=== PATIENT | female | born 2000 | race Caucasian/White ===

== ENCOUNTER 2019-09-29 20:39 | Emergency (ER) | payer MEDICAID, SELFPAY ==
[2019-09-29 20:40] VITALS: BP 155/109; PULSE 81; RESP 18; TEMP 36.8; O2SAT 98; BMI 37.4
--- NOTE | 2019-09-29 20:58 | ED_ITS ---
Entered by Jasmine Swanson, acting as scribe for Jese Gudino DO HPI - Abdominal Pain General: Chief Complaint: Abdominal Pain Stated Complaint: r side pain Time Seen by Provider: 09/29/19 20:55 History of Present Illness: HPI narrative: 19yo female presents with right flank pain. Symptoms have been intermittent over the last few weeks. Patient has had nausea and vomiting but denies any blood in vomit. Patient does not know of anything that worsens the pain. Associated Symptoms: Denies chills, coffee ground emesis, constipation, GI cramping, diarrhea, dysuria, fever(s), heartburn, hematochezia, hematuria, hematemesis, melena, nausea, syncope and vomiting Review of Systems Const: Denies: fever, chills, body aches, fatigue, malaise or night sweats Eyes: Denies: change in vision or blurry vision ENMT: Denies: throat pain, oral sores/lesions, dental pain, nasal discharge or nasal congestion Card: Denies: chest pain, palpitations, irregular heart rhythm, edema, syncope, shortness of breath on exertion, shortness of breath when lying down or leg pain with exertion Resp: Denies: shortness of breath, productive cough, non-productive cough or wheezing GI: Reports: abdominal pain (right flank pain); Denies: nausea, vomiting, vomiting blood, coffee grounds in vomit, difficulty swallowing, heartburn/indigestion, diarrhea, constipation, cramping, blood in stool or black tarry stool : Reports: flank pain (right); Denies: painful urination, urinary frequency, urinary urgency, urinary incontinence or blood in urine Musc: Denies: neck pain, back pain, extremity pain, extremity swelling, joint pain or joint swelling Skin/Breast: Denies: rash, itching or redness Neuro: Denies: headache, numbness in extremities, weakness in extremities, changes in sensation, lack of coordination, difficulty walking, frequent falls, dizziness, vertigo or confusion Psych: Denies: anxiety, depression, loss of interest, visual hallucinations, auditory hallucinations, suicidal ideation or homicidal ideation Endo: Denies: excessive urination, excessive thirst, tired all the time or cold intolerance Judson/Lymph: Denies: easy bruising, easy bleeding, petechiae, enlarged lymph nodes or tender lymph nodes PFSH ED PFSH: Social History Smoking and tobacco status: current every day smoker Physical Exam Const: COMMON NORMALS: average body habitus, oriented x3 and alert GENERAL APPEARANCE: cooperative, comfortable, well kempt and well developed NUTRITIONAL APPEARANCE: obese ORIENTATION/CONSCIOUSNESS: Yes awake, Yes oriented to person and Yes oriented to place HENMT: COMMON NORMALS: normocephalic, head/scalp atraumatic, EAC's normal, TM's normal bilaterally, external nose normal, moist oral mucous membranes and oropharynx normal HEAD & SCALP: normocephalic and atraumatic NOSE: external nose normal EXTERNAL AUDITORY CANAL: EAC's normal TYMPANIC MEMBRANE: TM's normal bilaterally MOUTH: oral and palatal mucosa normal, lip normal and tongue normal THROAT: posterior oropharynx normal and tonsils normal Eye: COMMON NORMALS: PERRL, EOMs intact bilaterally, conjunctivae normal and no scleral icterus CONJUNCTIVA: Yes conjunctivae normal PUPIL: Yes PERRL Neck/C-Spine: COMMON NORMALS: full ROM, no lymphadenopathy, supple, no meningeal signs and thyroid normal THYROID: thyroid normal and asymmetrical Lymph: LYMPHATIC: no lymphadenopathy noted Resp: COMMON NORMALS: normal respiratory effort, no retractions, no use of ac cessory muscles and clear to auscultation bilaterally AUSCULTATION: clear to auscultation bilaterally Cardio: COMMON NORMALS: regular rate and regular rhythm RATE: regular rate RHYTHM: regular rhythm HEART SOUNDS: no murmurs GI: COMMON NORMALS: normal to inspection, nondistended, normoactive bowel sounds, soft to palpation and no hepatosplenomegaly PALPATION: Yes soft and Yes no hepatosplenomegaly : COMMON NORMALS: Yes no CVA tenderness BLADDER/KIDNEY EXAM: Yes no CVA tenderness Back/Pelvis: COMMON NORMALS: no CVA tenderness LUMBAR SPINE/LOWER BACK: Yes normal to inspection Extremity: COMMON NORMALS: no clubbing, cyanosis or edema, no calf tenderness and no pedal edema Neuro: COMMON NORMALS: oriented x3 SENSORIUM/ORIENTATION: Yes alert, Yes oriented to person and Yes oriented to place MENINGEAL SIGNS: Yes no meningeal signs Psych: APPEARANCE: Yes well kempt Skin: COMMON NORMALS: no rashes or lesions noted and skin turgor normal GENERAL SKIN EXAM: no rashes or lesions noted and turgor normal Course ED course: No definitive finding elevation of white count. We will let her go home return if has any further problems. Vital Signs: Vital signs: Vital Signs Temperature 98.3 F 09/29/19 20:40 Pulse Rate 69 09/29/19 23:34 Respiratory Rate 16 09/29/19 23:34 Blood Pressure 155/109 09/29/19 20:40 Pulse Oximetry 97 09/29/19 23:34 MDM - Abdominal Pain Lab Data: Labs: Lab Results 09/29/19 09/29/19 09/29/19 Range/Units 21:18 21:18 21:20 WBC 9.4 (4.0-10.0) 10^3/ uL RBC 4.70 (4.1-5.3) 10^6/u L Hgb 10.7 L (11.5-15.3) g/dL Hct 36.4 L (37.0-47.0) % MCV 77.4 L (81-99) fL MCH 22.8 L (28.0-34.0) pg MCHC 29.4 L (30.0-36.0) g/dL RDW 16.4 H (12.1-15.1) % Plt Count 447 H (130-400) 10^3/c mm MPV 11.3 H (7.4-10.4) fL Neut % (Auto) 64.3 % Lymph % (Auto) 25.2 % [place] % (Auto) 6.6 % Eos % (Auto) 3.2 % Baso % (Auto) 0.4 % Neut # (Auto) 6.0 (1.8-7.7) 10^3/u L Lymph # (Auto) 2.4 (0.8-4.8) 10^3/u L [place] # (Auto) 0.6 (0.2-0.9) 10^3/u L Eos # (Auto) 0.3 (0.0-0.8) 10^3/u L Baso # (Auto) 0.0 (0.0-0.1) 10^3/u L Nucleated RBC % (a uto) 0 % Nucleated RBCs # 0.0 /100WBC Sodium (136-145) mmol/L Potassium (3.5-5.1) mmol/L Chloride (98-107) mmol/L Carbon Dioxide (22-29) mmol/L Anion Gap (5-19) BUN (6-20) mg/dL Creatinine (0.5-0.9) mg/dL GFR Calculation (90-130) mL/min Glucose (65-115) mg/dL Calcium (8.5-10.5) mg/dL Total Bilirubin (0.15-1.2) mg/dL AST (0-32) U/L ALT (0-33) U/L Alkaline Phosphata se (35-105) IU/L Total Protein (6.6-8.7) g/dL Albumin (3.5-5.2) g/dL Globulin (1.3-4.6) g/dL HCG, Qual Negative (Negative) Urine Color Straw (Yellow) Urine Appearance Clear (CLEAR) Urine pH 6.5 (5-7) Ur Specific Gravit y 1.010 (1.005-1.030) Urine Protein Neg (Negative) Urine Glucose (UA) Norm (Normal) Urine Ketones Negative (Negative) Urine Blood Neg (Negative) Urine Nitrate Negative (Negative) Urine Bilirubin Neg (NEGATIVE) Urine Urobilinogen Norm (Negative) mg/dL Ur Leukocyte Christiana ase Negative (Negative) 09/29/19 Range/Units 21:20 WBC (4.0-10.0) 10^3/ uL RBC (4.1-5.3) 10^6/u L Hgb (11.5-15.3) g/dL Hct (37.0-47.0) % MCV (81-99) fL MCH (28.0-34.0) pg MCHC (30.0-36.0) g/dL RDW (12.1-15.1) % Plt Count (130-400) 10^3/c mm MPV (7.4-10.4) fL Neut % (Auto) % Lymph % (Auto) % [place] % (Auto) % Eos % (Auto) % Baso % (Auto) % Neut # (Auto) (1.8-7.7) 10^3/u L Lymph # (Auto) (0.8-4.8) 10^3/u L [place] # (Auto) (0.2-0.9) 10^3/u L Eos # (Auto) (0.0-0.8) 10^3/u L Baso # (Auto) (0.0-0.1) 10^3/u L Nucleated RBC % (a uto) % Nucleated RBCs # /100WBC Sodium 138 (136-145) mmol/L Potassium 3.8 (3.5-5.1) mmol/L Chloride 103 (98-107) mmol/L Carbon Dioxide 23 (22-29) mmol/L Anion Gap 15.8 (5-19) BUN 11 (6-20) mg/dL Creatinine 0.7 (0.5-0.9) mg/dL GFR Calculation 105.6 (90-130) mL/min Glucose 91 (65-115) mg/dL Calcium 9.7 (8.5-10.5) mg/dL Total Bilirubin 0.2 (0.15-1.2) mg/dL AST 13 (0-32) U/L ALT 14 (0-33) U/L Alkaline Phosphata se 76 (35-105) IU/L Total Protein 7.6 (6.6-8.7) g/dL Albumin 4.5 (3.5-5.2) g/dL Globulin 3.1 (1.3-4.6) g/dL HCG, Qual (Negative) Urine Color (Yellow) Urine Appearance (CLEAR) Urine pH (5-7) Ur Specific Gravit y (1.005-1.030) Urine Protein (Negative) Urine Glucose (UA) (Normal) Urine Ketones (Negative) Urine Blood (Negative) Urine Nitrate (Negative) Urine Bilirubin (NEGATIVE) Urine Urobilinogen (Negative) mg/dL Ur Leukocyte Christiana ase (Negative) Discharge Plan Discharge Patient Disposition: Home, Self-Care Clinical Impression: Abdominal pain Condition: Stable Prescriptions: New Zofran 4 mg tablet 4 mg PO Q6H PRN (Reason: nausea and vomiting) Qty: 20 RF: 0 Discharge Orders: Discharge Order (Routine); Ordered 09/29/19 Ordered By: Jese Gudino Discharge Diet: Clear Liquid Discharge Activity: Increase activity as tolerated Patient Instructions: Abdominal Pain (ED) Stand Alone Forms: Work/School Release Discharge Date/Time: 09/29/19 23:35 Coding Level of Care Code ED [employer] for [facility] Fwd Exam Comprehensive The documentation recorded by the Sky ambrosio Bailey Leadawn, accurately reflects the service I personally performed and the decisions made by , Jese Gudino, Sep 29, 2019 20:39
--- NOTE | 2019-09-29 21:09 | US_ITS ---
WS: [id number] ABDOMINAL ULTRASOUND LIMITED REASON FOR VISIT: abd pain TECHNIQUE: Grayscale and Doppler ultrasound examination of the abdomen. FINDINGS: Pancreas: Within normal limits. Abdominal aorta and IVC: Within normal limits. Liver: Liver measures 10.8 cm in length. Normal hepatopedal portal circulation. Gallbladder: Gallbladder wall thickness measures 1.4 mm. No stones. Common bile duct negative. Right kidney: Right kidney measures 12.0 cm x 5.5 cm x 5.4 cm. Right kidney cortex measures 2.03 cm. No hydronephrosis no stones. US/US gall bladder [id number] IMPRESSION: Normal right upper quadrant ultrasound.
[2019-09-29 21:31] LABS: Add Urine Microscopic? NO
[2019-09-29] MEDS: sodium chloride 0.9% 1,000 ML 999 ML IV (21:34)
[2019-09-29 21:36] LABS: Basophils % 0.4 %; Eosinophils # 0.3 10^3/uL (0.0-0.8); Eosinophils % 3.2 %; Hematocrit 36.4 % (37.0-47.0); Hemoglobin 10.7 g/dL (11.5-15.3); Lymphocytes # 2.4 10^3/uL (0.8-4.8); Lymphocytes % 25.2 %; Mean Corpuscular HGB Conc 29.4 g/dL (30.0-36.0); Mean Corpuscular Hemoglobin 22.8 pg (28.0-34.0); Mean Corpuscular Volume 77.4 fL (81-99); Mean Platelet Volume 11.3 fL (7.4-10.4); Monocytes # 0.6 10^3/uL (0.2-0.9); Monocytes % 6.6 %; Neutrophils % 64.3 %; Nucleated Red Blood Cells % 0 %; Platelet Count 447 10^3/cmm (130-400); Red Cell Distribution Width 16.4 % (12.1-15.1); White Blood Count 9.4 10^3/uL (4.0-10.0)
[2019-09-29 21:49] LABS: HCG Qualitative Urine. Negative (Negative)
[2019-09-29 21:52] LABS: Alanine Aminotransferase 14 U/L (0-33); Albumin Level 4.5 g/dL (3.5-5.2); Alkaline Phosphatase 76 IU/L (35-105); Anion Gap 15.8 (5-19); Aspartate Amino Transferase 13 U/L (0-32); Blood Urea Nitrogen 11 mg/dL (6-20); Calcium 9.7 mg/dL (8.5-10.5); Carbon Dioxide 23 mmol/L (22-29); Chloride 103 mmol/L (98-107); Globulin 3.1 g/dL (1.3-4.6); Glomerular Filtration Rate 105.6 mL/min (90-130); Glucose 91 mg/dL (65-115); Potassium 3.8 mmol/L (3.5-5.1); Sodium 138 mmol/L (136-145); Total Bilirubin 0.2 mg/dL (0.15-1.2); Total Protein 7.6 g/dL (6.6-8.7)
[2019-09-29 22:04] LABS: Bilirubin Urine Neg (NEGATIVE); Blood Urine Neg (Negative); Glucose Urine UA Norm (Normal); Ketones Urine Negative (Negative); Leukocyte Esterase Urine Negative (Negative); Nitrate Urine Negative (Negative); Protein Urine Neg (Negative); Urine Appearance Clear (CLEAR); Urine Color Straw (Yellow); Urobilinogen Urine Norm (Negative); pH Urine 6.5 (5-7)
[2019-09-29] MEDS: sodium chlor 0.9% + KCl 20 mEq 20 MEQ/1,000 ML BAG 125 MEQ IV (22:16)
[2019-09-29 23:34] VITALS: PULSE 69; RESP 16; O2SAT 97
== END 2019-09-29 23:35 | disposition home or self-care (01) ==
PROVIDERS: Emergency Provider Family Medicine
DX: R10.9 Unspecified abdominal pain (principal); F17.200 Nicotine dependence, unspecified, uncomplicated
CPT/HCPCS: 76705; 80053; 81003; 81025; 85025; 94799; 96365; 96366; 99282; 99283; A9270; J7030

== ENCOUNTER → 2019-10-07 15:03 | Outpatient (BNVA) | payer SELFPAY | PROVIDERS: Visit Provider Nurse Practitioner | DX: R11.2 Nausea with vomiting, unspecified (principal); R50.9 Fever, unspecified; K52.9 Noninfective gastroenteritis and colitis, unspecified; Z20.828 Contact with and (suspected) exposure to other viral communicable diseases | CPT/HCPCS: 87804 ==

== ENCOUNTER 2020-05-15 22:16 | Emergency (ER) | payer SELFPAY ==
[2020-05-15 22:18] VITALS: BP 119/81; PULSE 64; RESP 14; TEMP 36.7; O2SAT 100; BMI 37.9
--- NOTE | 2020-05-15 22:33 | W.ED.ABDPA2 ---
HPI - Abdominal Pain General: Chief Complaint: Abdominal Pain Stated Complaint: 5 WKS , HAVING ABD CRAMPS Time Seen by Provider: 05/15/20 22:23 History of Present Illness: HPI narrative: Patient is a 1 that is 5 weeks and comes to the ED with lower abdominal cramping. Symptoms started today. Patient says she had some light spotting earlier today but that has since resolved. No other vaginal bleeding or discharge. She says her lower abdominal cramping pain is intermittent and rates pain 4 out of 10. Patient took some Tylenol approximately 2 hours before coming to the ED. Denies any fever, chills, emesis, dysuria, hematuria, diarrhea, constipation, blood in stool. Associated Symptoms: Denies chills, constipation, diarrhea, dysuria, fever(s), hematochezia, hematuria, nausea and vomiting Review of Systems Const: Denies: fever(s), chills or fatigue Eyes: Denies: change in vision or eye discomfort ENMT: Denies: throat pain, odynophagia, nasal discharge or nasal congestion Card: Denies: chest pain, palpitations, edema, swelling of feet/ankles, dyspnea on exertion or orthopnea Resp: Denies: dyspnea, productive cough or non-productive cough GI: Reports: abdominal pain (intermittent lower abdominal cramping); Denies: nausea, vomiting, diarrhea, constipation or hematochezia : Reports: vaginal bleeding (Patient had light spotting in the morning, but it has since resolved.) and pelvic pain (cramping); Denies: flank pain, dysuria, urinary frequency or hematuria Musc: Denies: neck pain, back pain or extremity swelling Skin/Breast: Denies: rash or new lesions Neuro: Denies: headache(s), numbness in extremities or weakness in extremities PFSH ED PFSH: Social History Smoking and tobacco status: current every day smoker Physical Exam Const: COMMON NORMALS: no acute distress, patient oriented x3 and alert GENERAL APPEARANCE: cooperative and comfortable NUTRITIONAL APPEARANCE: obese HENMT: COMMON NORMALS: normocephalic HEAD & SCALP: normocephalic MOUTH: Normal oral and palatal mucosa present THROAT: posterior oropharynx normal and uvula midline Neck/C-Spine: COMMON NORMALS: supple GENERAL: Yes normal visual inspection Resp: COMMON NORMALS: normal respiratory effort, No retractions, No use of accessory muscles and clear to auscultation bilaterally AUSCULTATION: clear to auscultation bilaterally Cardio: COMMON NORMALS: regular rate, regular rhythm, S1 normal heart sound present, S2 normal heart sound present, No gallops present (Cardio), No clicks present (Cardio), No murmurs present (Cardio) and Peripheral pulses 2+ throughout RATE: regular rate RHYTHM: regular rhythm HEART SOUNDS: S1 normal heart sound present and S2 normal heart sound present PERIPHERAL PULSES: Peripheral pulses 2+ throughout GI: COMMON NORMALS: Normal to inspection, nondistended, normoactive bowel sounds present, Soft to palpation and no masses INSPECTION: Yes central obesity PALPATION: Yes Soft to palpation and Yes Tenderness to palpation present (GI) Details: other (Mild lower abdominal tenderness bilaterally.) : COMMON NORMALS: Yes no CVA tenderness BLADDER/KIDNEY EXAM: Yes no CVA tenderness Back/Pelvis: COMMON NORMALS: no CVA tenderness Extremity: COMMON NORMALS: normal to inspection and no pedal edema Neuro: COMMON NORMALS: patient oriented x3 SENSORIUM/ORIENTATION: Yes alert GAIT: Yes Normal gait present Skin: COMMON NORMALS: no rashes or lesions noted GENERAL SKIN EXAM: no rashes or lesions noted and dry skin Course Vital Signs: Vital signs: Vital Signs Temperature 98.1 F 05/15/20 22:18 Pulse Rate 67 05/16/20 00:35 Respiratory Rate 16 05/16/20 00:35 Blood Pressure 122/65 05/15/20 23:14 Pulse Oximetry 99 05/16/20 00:35 MDM - Abdominal Pain MDM Narrative: Medical decision making narrative: Patient is a 5-week 19-year-old female who comes to the ED with lower abdominal/pelvic cramping and light spotting that has since resolved. Physical exam shows a patient in no acute distress pain sitting comfortably on the exam bed when entered the room. She has some mild tenderness upon palpation of the lower pelvic region bilaterally. CBC, CMP and UA were unremarkable. hCG quant 2,076. Ultrasound of the pelvis was performed and no gestational sac was seen. Unable to rule out ectopic . Patient was told to follow-up here in the ED in 3 days or her PCP/OB doctor in 3 days to be reevaluated and to have hCG quant checked again. Return to ED precautions given. Patient understood and agreed with plan. Lab Data: Attestation: I reviewed the patient's lab results. Labs: Lab Results 05/15/20 05/15/20 05/15/20 Range/Units 22:43 22:43 22:46 WBC 10.8 H (4.0-10.0) 10^3/ uL RBC 4.62 (4.1-5.3) 10^6/u L Hgb 11.6 (11.5-15.3) g/dL Hct 37.5 (37.0-47.0) % MCV 81.2 (81-99) fL MCH 25.1 L (28.0-34.0) pg MCHC 30.9 (30.0-36.0) g/dL RDW 15.6 H (12.1-15.1) % Plt Count 410 H (130-400) 10^3/c mm MPV 11.9 H (7.4-10.4) fL Neut % (Auto) 64.3 % Lymph % (Auto) 25.2 % [place] % (Auto) 7.3 % Eos % (Auto) 2.5 % Baso % (Auto) 0.5 % Neut # (Auto) 6.93 (1.8-7.7) 10^3/u L Lymph # (Auto) 2.7 (0.8-4.8) 10^3/u L [place] # (Auto) 0.8 (0.2-0.9) 10^3/u L Eos # (Auto) 0.3 (0.0-0.8) 10^3/u L Baso # (Auto) 0.1 (0.0-0.1) 10^3/u L Nucleated RBC % (a uto) 0 % Nucleated RBCs # 0.0 /100WBC Sodium 136 (136-145) mmol/L Potassium 3.7 (3.5-5.1) mmol/L Chloride 105 (98-107) mmol/L Carbon Dioxide 21 L (22-29) mmol/L Anion Gap 13.7 (5-19) BUN 10 (6-20) mg/dL Creatinine 0.5 (0.5-0.9) mg/dL GFR Calculation 155.7 H (90-130) mL/min Glucose 95 (65-115) mg/dL Calculated Osmolal ity 281 L (285-295) mOsm/k g Calcium 8.9 (8.5-10.5) mg/dL Total Bilirubin 0.2 (0.15-1.2) mg/dL AST 15 (0-32) U/L ALT 11 (0-33) U/L Alkaline Phosphata se 70 (35-105) IU/L Total Protein 6.8 (6.6-8.7) g/dL Albumin 4.1 (3.5-5.2) g/dL Globulin 2.7 (1.3-4.6) g/dL Ser , Jennifer i-Qnt 2076.00 mIU/mL Urine Color Yellow (Yellow) Urine Appearance Clear (CLEAR) Urine pH 5 (5-7) Ur Specific Gravit y 1.030 (1.005-1.030) Urine Protein Neg (Negative) Urine Glucose (UA) Norm (Normal) Urine Ketones Negative (Negative) Urine Blood Neg (Negative) Urine Nitrate Negative (Negative) Urine Bilirubin Neg (Negative) Urine Urobilinogen Norm (Negative) mg/dL Ur Leukocyte Christiana ase Trace H (Negative) Urine RBC 0-4 H (0-2) /hpf Urine WBC 0-4 H (0-5) /hpf Ur Squamous Epith Cells 0-4 H (0-5) /hpf Amorphous Sediment Not Reportable Urine Bacteria Trace (NONE) /hpf Urine Mucus 1+ /hpf Imaging Data ^: US OB: Attestation: I personally reviewed and interpreted this imaging study as follows: Radiologist's impression: Ultrasound pelvic prelim report?no gestational sac seen in utero or ectopic. Unable to rule out ectopic . Discharge Plan Discharge Patient Disposition: Home Clinical Impression: Pelvic cramping Qualifiers: Weeks of gestation: less than 8 weeks Qualified Code(s): Z3A.01 - Less than 8 weeks gestation of Condition: Stable Prescriptions: No Action cyclobenzaprine 10 mg tablet 10 mg PO TID PRN (Reason: muscle spasm) 7 Days Qty: 14 RF: 0 ibuprofen 400 mg tablet 400 mg PO Q8H PRN (Reason: pain) 7 Days Qty: 21 RF: 0 Zofran 4 mg tablet 4 mg PO Q6H PRN (Reason: nausea and vomiting) Qty: 20 RF: 0 Discharge Orders: Discharge Order (Routine); Ordered 05/16/20 Ordered By: Karthikeyan Parekh Discharge Diet: Regular Discharge Activity: Resume usual activity Activity Restrictions/Additional Instructions: Follow-up with medical provider as directed. Return to ED or OB doctor in the next 3 days to be reevaluated and to recheck hCG levels. Take Tylenol for pain. Return to the ER or your medical provider if condition worsens. Please read and understand discharge instructions. If any questions, please ask. Stand Alone Forms: Work/School Release Discharge Date/Time: 05/16/20 00:38 Coding Level of Care Code ED [employer] Education Coordinator for [facility] Fwd Exam Comprehensive
[2020-05-15 22:54] LABS: Basophils # 0.1 10^3/uL (0.0-0.1); Basophils % 0.5 %; Eosinophils # 0.3 10^3/uL (0.0-0.8); Eosinophils % 2.5 %; Hematocrit 37.5 % (37.0-47.0); Hemoglobin 11.6 g/dL (11.5-15.3); Lymphocytes # 2.7 10^3/uL (0.8-4.8); Lymphocytes % 25.2 %; Mean Corpuscular HGB Conc 30.9 g/dL (30.0-36.0); Mean Corpuscular Hemoglobin 25.1 pg (28.0-34.0); Mean Corpuscular Volume 81.2 fL (81-99); Mean Platelet Volume 11.9 fL (7.4-10.4); Monocytes # 0.8 10^3/uL (0.2-0.9); Monocytes % 7.3 %; Neutrophils # 6.93 10^3/uL (1.8-7.7); Neutrophils % 64.3 %; Nucleated Red Blood Cells % 0 %; Platelet Count 410 10^3/cmm (130-400); Red Blood Count 4.62 10^6/uL (4.1-5.3); Red Cell Distribution Width 15.6 % (12.1-15.1); White Blood Count 10.8 10^3/uL (4.0-10.0)
[2020-05-15 23:14] VITALS: BP 122/65; PULSE 76; RESP 16; O2SAT 99
[2020-05-15 23:14] LABS: Bacteria Urine TRACE /hpf; Bilirubin Urine Neg (Negative); Blood Urine Neg (Negative); Glucose Urine UA Norm (Normal); Ketones Urine Negative (Negative); Leukocyte Esterase Urine Trace (Negative); Mucus Urine 1+ /hpf; Nitrate Urine Negative (Negative); Protein Urine Neg (Negative); RBC Urine 0-4 /hpf (0-2); Squamous Epithelial Cell Urine 0-4 /hpf (0-5); Urine Appearance Clear (CLEAR); Urine Color Yellow (Yellow); Urobilinogen Urine Norm (Negative); WBC Urine 0-4 /hpf (0-5); pH Urine 5 (5-7)
[2020-05-15 23:22] LABS: Alanine Aminotransferase 11 U/L (0-33); Albumin Level 4.1 g/dL (3.5-5.2); Alkaline Phosphatase 70 IU/L (35-105); Anion Gap 13.7 (5-19); Aspartate Amino Transferase 15 U/L (0-32); Blood Urea Nitrogen 10 mg/dL (6-20); Calcium 8.9 mg/dL (8.5-10.5); Carbon Dioxide 21 mmol/L (22-29); Chloride 105 mmol/L (98-107); Globulin 2.7 g/dL (1.3-4.6); Glomerular Filtration Rate 155.7 mL/min (90-130); Glucose 95 mg/dL (65-115); Osmolality Calculated 281 mOsm/kg (285-295); Potassium 3.7 mmol/L (3.5-5.1); Sodium 136 mmol/L (136-145); Total Bilirubin 0.2 mg/dL (0.15-1.2); Total Protein 6.8 g/dL (6.6-8.7)
--- NOTE | 2020-05-15 23:25 | US_ITS ---
WS: [id number] PELVIC ULTRASOUND REASON FOR VISIT: preg with cramping and light spotting TECHNIQUE: Grayscale and Doppler transabdominal and transvaginal pelvic ultrasound. FINDINGS: No intrauterine was identified. No thickening of the endometrium or decidual cast was ident ified. The left ovary was 1 29 x 2.09 cm with no mass. 1.87 sonolucent mass with some internal echoes, no septation. It is thin-walled without significant D oppler signal in the margins. The right ovary could not be identified as a separate structure. There was no fluid in the cul-de-sac. US/US pelvic with transvaginal IMPRESSION: No intrauterine is identified. Clinical situation could represent a m issed AB. Most likely the mass in the right adnexa as a hemorrhagic right ovari an cyst, however ectopic cannot be excluded. Follow-up ultrasound is recommended as clinically warranted.
[2020-05-16 00:35] VITALS: PULSE 67; RESP 16; O2SAT 99
== END 2020-05-16 00:38 | disposition home or self-care (01) ==
PROVIDERS: Emergency Provider Physician Assistant
DX: O26.891 Other specified pregnancy related conditions, first trimester (principal); R10.2 Pelvic and perineal pain; Z3A.01 Less than 8 weeks gestation of pregnancy; O99.331 Smoking (tobacco) complicating pregnancy, first trimester; F17.210 Nicotine dependence, cigarettes, uncomplicated
CPT/HCPCS: 12345; 76830; 76856; 80053; 81001; 84702; 85025; 99282; 99283

== ENCOUNTER 2020-05-30 19:32 | Emergency (ER) | payer MEDICAID, SELFPAY ==
[2020-05-30 19:46] VITALS: BP 122/85; PULSE 79; RESP 14; TEMP 36.8; O2SAT 98; BMI 37.9
[2020-05-30 20:12] VITALS: BP 115/69; PULSE 84; RESP 18; O2SAT 98
--- NOTE | 2020-05-30 20:42 | W.ED.NAVMDI ---
HPI - Nausea/Vomiting/Diarrhea General: Chief complaint: Nausea/Vomiting/Diarrhea Stated complaint: FEELS WEAK, BP ELEVATED Time Seen by Provider: 05/30/20 20:15 Source: patient Mode of arrival: ambulatory History of Present Illness: HPI Narrative: Patient is a 19 year old female patient, who is currently and has been having nausea and vomiting for about one week. She believes this is secondary to the . She has however been vomiting all day. Today, she developed dizziness and presyncope and has lasted all day. She is therefore here for evaluation. MD elicited complaint: nausea and vomiting Description of vomiting: food contents Associated nausea: Yes Associated abdominal pain: No Location of pain: None Exacerbating factors: none Relieving factors: none Associated symtoms: Reports dizziness and nausea; Denies altered mental status, anxiety, bloating, change in vision, chest pain, cough, diaphoresis, decreased urine output, dysuria, epistaxis, fatigue, fecal incontinence, fevers/chills, headache(s), anorexia, malaise, myalgias, numbness, palpitations, rash, short of breath, syncope, tenesmus, tinnitus or weakness Review of Systems General: Reports: 10 or more systems reviewed and unremarkable except in HPI and below Const: Denies: fatigue, malaise or diaphoresis Eyes: Denies: change in vision ENMT: Denies: tinnitus or epistaxis Card: Denies: chest pain, palpitations or syncope Resp: Denies: dyspnea, productive cough or non-productive cough GI: Reports: nausea; Denies: bloating or fecal incontinence : Denies: dysuria Musc: Denies: neck pain, back pain or extremity swelling Skin/Breast: Denies: rash, pruritus or erythema Neuro: Reports: dizziness; Denies: headache(s) Psych: Denies: anxiety Endo: Denies: polyuria, polydipsia or tired all the time PFS ED PFSH: Social History (Reviewed 05/30/20 @ 20:49 by Julia Fischer [place] [facility] [place] Smoking and tobacco status: current every day smoker Female Reproductive History: Date of last menstrual period: 04/09/20 Physical Exam Const: COMMON NORMALS: no acute distress, average body habitus, patient oriented x3, no limitations, healthy appearing, alert and well nourished EXAM LIMITATIONS: no altered mental status HENMT: COMMON NORMALS: normocephalic, atraumatic and moist oral mucous membranes HEAD & SCALP: normocephalic and atraumatic Eye: COMMON NORMALS: Equal, round and reactive pupils present, EOMs intact bilaterally, conjunctivae normal and no scleral icterus CONJUNCTIVA: Yes conjunctivae normal PUPIL: Yes Equal, round and reactive pupils present Neck/C-Spine: COMMON NORMALS: full ROM, supple, no meningeal signs, no JVD and No carotid bruits Resp: COMMON NORMALS: normal respiratory effort, No retractions, No use of accessory muscles, clear to auscultation bilaterally and percussion normal AUSCULTATION: clear to auscultation bilaterally PERCUSSION: percussion normal Cardio: COMMON NORMALS: no JVD, regular rate, regular rhythm, S1 normal heart sound present, S2 normal heart sound present, No gallops present (Cardio), No clicks present (Cardio), No murmurs present (Cardio), No rub (Cardio) and Peripheral pulses 2+ throughout RATE: regular rate RHYTHM: regular rhythm HEART SOUNDS: S1 normal heart sound present and S2 normal heart sound present PERIPHERAL PULSES: Peripheral pulses 2+ throughout GI: COMMON NORMALS: Normal to inspection, nondistended, normoactive bowel sounds present, Soft to palpation, non-tender, No hepatosplenomegaly present, no masses and no bruits PALPATION: Yes Soft to palpation and Yes No hepatosplenomegaly present Extremity: COMMON NORMALS: normal to inspection, full ROM, capillary refill normal, no calf tenderness and no pedal edema Neuro: COMMON NORMALS: patient oriented x3 SENSORIUM/ORIENTATION: Yes alert MENINGEAL SIGNS: Yes no meningeal signs Skin: COMMON NORMALS: no rashes or lesions noted, no wounds, turgor normal, no jaundice, no petechiae and no mottling GENERAL SKIN EXAM: no rashes or lesions noted and turgor normal Course Reevaluation(s): Reevaluation #1: Discussed her labs with her - unremarkable. She is not orthostatic. She will be discharged home with a prescription for doxylamine/pyridoxine. She voiced understanding and all questions answered. Time: 22:16 Vital Signs: Vital signs: Vital Signs Temperature 98.3 F 05/30/20 19:46 Pulse Rate 78 05/30/20 21:35 Respiratory Rate 18 05/30/20 21:35 Blood Pressure 124/71 05/30/20 21:35 Pulse Oximetry 99 05/30/20 21:35 MDM - Nausea/Vomiting/Diarrhea MDM Narrative: Medical decision making narrative: Patient with vomiting in . She is hemodynamically stable and labs are unremarkable. She is discharged home on oral antiemetics. Medical Records: Attestation: I reviewed the patient's medical records. Lab Data: Attestation: I reviewed the patient's lab results. Labs: Lab Results 05/30/20 05/30/20 05/30/20 Range/Units 21:25 21:25 21:25 WBC 12.0 H (4.0-10.0) 10^3/ uL RBC 4.46 (4.1-5.3) 10^6/u L Hgb 11.2 L (11.5-15.3) g/dL Hct 35.7 L (37.0-47.0) % MCV 80.0 L (81-99) fL MCH 25.1 L (28.0-34.0) pg MCHC 31.4 (30.0-36.0) g/dL RDW 15.2 H (12.1-15.1) % Plt Count 336 (130-400) 10^3/c mm MPV 12.1 H (7.4-10.4) fL Neut % (Auto) 67.2 % Lymph % (Auto) 21.0 % [place] % (Auto) 7.6 % Eos % (Auto) 3.5 % Baso % (Auto) 0.5 % Neut # (Auto) 8.08 H (1.8-7.7) 10^3/u L Lymph # (Auto) 2.5 (0.8-4.8) 10^3/u L [place] # (Auto) 0.9 (0.2-0.9) 10^3/u L Eos # (Auto) 0.4 (0.0-0.8) 10^3/u L Baso # (Auto) 0.1 (0.0-0.1) 10^3/u L Nucleated RBC % (a uto) 0 % Nucleated RBCs # 0.0 /100WBC Sodium 137 (136-145) mmol/L Potassium 3.7 (3.5-5.1) mmol/L Chloride 105 (98-107) mmol/L Carbon Dioxide 20 L (22-29) mmol/L Anion Gap 15.7 (5-19) BUN 10 (6-20) mg/dL Creatinine 0.5 (0.5-0.9) mg/dL GFR Calculation 155.7 H (90-130) mL/min Glucose 101 (65-115) mg/dL Calculated Osmolal ity 283 L (285-295) mOsm/k g Calcium 9.3 (8.5-10.5) mg/dL Total Bilirubin 0.2 (0.15-1.2) mg/dL AST 10 (0-32) U/L ALT 11 (0-33) U/L Alkaline Phosphata se 69 (35-105) IU/L Total Protein 6.9 (6.6-8.7) g/dL Albumin 4.1 (3.5-5.2) g/dL Globulin 2.8 (1.3-4.6) g/dL Lipase 18 (13-60) U/L Urine Color Yellow (Yellow) Urine Appearance Clear (CLEAR) Urine pH 5 (5-7) Ur Specific Gravit y 1.025 (1.005-1.030) Urine Protein Neg (Negative) Urine Glucose (UA) Norm (Normal) Urine Ketones Negative (Negative) Urine Blood Neg (Negative) Urine Nitrate Negative (Negative) Urine Bilirubin Neg (Negative) Urine Urobilinogen Norm (Negative) mg/dL Ur Leukocyte Christiana ase Negative (Negative) Discharge Plan Discharge Patient Disposition: Home Clinical Impression: Vomiting of Condition: Stable Prescriptions: New doxylamine-pyridoxine (vit B6) 10-10 mg tablet,delayed release (DR/EC) 1 tab PO TID Qty: 30 RF: 0 Continued cyclobenzaprine 10 mg tablet 10 mg PO TID PRN (Reason: muscle spasm) 7 Days Qty: 14 RF: 0 ibuprofen 400 mg tablet 400 mg PO Q8H PRN (Reason: pain) 7 Days Qty: 21 RF: 0 Zofran 4 mg tablet 4 mg PO Q6H PRN (Reason: nausea and vomiting) Qty: 20 RF: 0 Discharge Orders: Discharge Order (Routine); Ordered 05/30/20 Ordered By: Julia Fischer Discharge Diet: Advance as tolerated and Usual diet Discharge Activity: Resume usual activity and Increase activity as tolerated Patient Instructions: Hyperemesis Gravidarum (ED) Activity Restrictions/Additional Instructions: Return for any new or worsening symptoms. Follow-up with your primary care provider on your security rover as scheduled. Drink plenty of fluids to keep well-hydrated. Take the medication as prescribed. Coding Level of Care Code ED Manager [employer] for Taniag Fwd Exam Comprehensive
[2020-05-30 20:51] VITALS: BP 108/79; BP 115/71; BP 131/66; PULSE 65; PULSE 66; PULSE 74
[2020-05-30] MEDS: sodium chloride 0.9% 1,000 ML 999 ML IV (21:21)
[2020-05-30] MEDS: ondansetron 2 mg/ML SDV 2 mL 4 MG IVP (21:21)
[2020-05-30 21:35] VITALS: BP 124/71; PULSE 78; RESP 18; O2SAT 99
[2020-05-30 21:40] LABS: Basophils # 0.1 10^3/uL (0.0-0.1); Basophils % 0.5 %; Eosinophils # 0.4 10^3/uL (0.0-0.8); Eosinophils % 3.5 %; Hematocrit 35.7 % (37.0-47.0); Hemoglobin 11.2 g/dL (11.5-15.3); Lymphocytes # 2.5 10^3/uL (0.8-4.8); Mean Corpuscular HGB Conc 31.4 g/dL (30.0-36.0); Mean Corpuscular Hemoglobin 25.1 pg (28.0-34.0); Mean Platelet Volume 12.1 fL (7.4-10.4); Monocytes # 0.9 10^3/uL (0.2-0.9); Monocytes % 7.6 %; Neutrophils # 8.08 10^3/uL (1.8-7.7); Neutrophils % 67.2 %; Nucleated Red Blood Cells % 0 %; Platelet Count 336 10^3/cmm (130-400); Red Blood Count 4.46 10^6/uL (4.1-5.3); Red Cell Distribution Width 15.2 % (12.1-15.1)
[2020-05-30 21:50] LABS: Add Urine Microscopic? NO
[2020-05-30 22:00] LABS: Bilirubin Urine Neg (Negative); Blood Urine Neg (Negative); Glucose Urine UA Norm (Normal); Ketones Urine Negative (Negative); Leukocyte Esterase Urine Negative (Negative); Nitrate Urine Negative (Negative); Protein Urine Neg (Negative); Specific Gravity, Urine 1.025 (1.005-1.030); Urine Appearance Clear (CLEAR); Urine Color Yellow (Yellow); Urobilinogen Urine Norm (Negative); pH Urine 5 (5-7)
[2020-05-30 22:04] LABS: Alanine Aminotransferase 11 U/L (0-33); Albumin Level 4.1 g/dL (3.5-5.2); Alkaline Phosphatase 69 IU/L (35-105); Anion Gap 15.7 (5-19); Aspartate Amino Transferase 10 U/L (0-32); Blood Urea Nitrogen 10 mg/dL (6-20); Calcium 9.3 mg/dL (8.5-10.5); Carbon Dioxide 20 mmol/L (22-29); Chloride 105 mmol/L (98-107); Globulin 2.8 g/dL (1.3-4.6); Glomerular Filtration Rate 155.7 mL/min (90-130); Glucose 101 mg/dL (65-115); Lipase 18 U/L (13-60); Osmolality Calculated 283 mOsm/kg (285-295); Potassium 3.7 mmol/L (3.5-5.1); Sodium 137 mmol/L (136-145); Total Bilirubin 0.2 mg/dL (0.15-1.2); Total Protein 6.9 g/dL (6.6-8.7)
[2020-05-30 22:32] LABS: C Reactive Protein 5.6 mg/L (0.0-4.9)
[2020-05-30 22:40] VITALS: BP 118/68; PULSE 56; RESP 18; TEMP 36.8; O2SAT 99
== END 2020-05-30 22:44 | disposition home or self-care (01) ==
PROVIDERS: Emergency Provider Family Medicine
DX: O21.9 Vomiting of pregnancy, unspecified (principal); O99.330 Smoking (tobacco) complicating pregnancy, unspecified trimester; F17.210 Nicotine dependence, cigarettes, uncomplicated; Z3A.00 Weeks of gestation of pregnancy not specified
CPT/HCPCS: 12345; 80053; 81003; 83690; 85025; 86140; 96361; 96374; 99283; J2405; J7030

== ENCOUNTER → 2020-06-06 10:29 | Outpatient (BNVA) | payer MEDICAID, SELFPAY | PROVIDERS: Visit Provider Nurse Practitioner Family | DX: J06.9 Acute upper respiratory infection, unspecified (principal); J02.9 Acute pharyngitis, unspecified | CPT/HCPCS: 87071; 87880 ==

== ENCOUNTER → 2021-06-06 08:32 | Outpatient (BNVA) | payer MEDICAID, SELFPAY | PROVIDERS: PCP Nurse Practitioner Family; Visit Provider Family Medicine | DX: L65.9 Nonscarring hair loss, unspecified (principal); I10 Essential (primary) hypertension | CPT/HCPCS: 80053; 82728; 83540; 84443; 85025; 85651; 86160; 86162; 86235; 86255; 86376 ==

== ENCOUNTER → 2021-06-17 10:19 | Outpatient (BNVA) | payer MEDICAID, SELFPAY | PROVIDERS: PCP Nurse Practitioner Family; Visit Provider Family Medicine | DX: L65.9 Nonscarring hair loss, unspecified (principal) | CPT/HCPCS: 83001; 83002; 84403 ==

== ENCOUNTER 2021-09-19 16:34 | Emergency (ER) | payer MEDICAID, SELFPAY ==
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
[2021-09-19 16:49] VITALS: BP 151/111; PULSE 78; RESP 18; TEMP 36.7; O2SAT 100; BMI 42.3
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
[2021-09-19 16:59] VITALS: BP 151/111; PULSE 72; RESP 18; O2SAT 99
[2021-09-19] MEDS: tetanus-dipt-pertussis 0.5 mL SDV IM (17:16)
[2021-09-19] MEDS: ondansetron 2 mg/ML SDV 2 mL 4 MG IVP (17:16)
[2021-09-19] MEDS: morphine 4 mg/mL SDV 1 mL IVP ×2 (17:17→19:42)
[2021-09-19 17:35] LABS: Basophils # 0.1 10^3/uL (0.0-0.1); Basophils % 0.3 %; Eosinophils # 0.2 10^3/uL (0.0-0.8); Eosinophils % 0.6 %; Hematocrit 44.1 % (37.0-47.0); Hemoglobin 13.9 g/dL (11.5-15.3); Lymphocytes # 2.1 10^3/uL (0.8-4.8); Lymphocytes % 8.4 %; Mean Corpuscular HGB Conc 31.5 g/dL (30.0-36.0); Mean Corpuscular Volume 82.6 fl (81-99); Mean Platelet Volume 11.5 fL (7.4-10.4); Monocytes # 1.4 10^3/uL (0.2-0.9); Monocytes % 5.8 %; Neutrophils # 20.89 10^3/uL (1.8-7.7); Neutrophils % 84.3 %; Nucleated Red Blood Cells % 0 %; Platelet Count 372 10^3/cmm (130-400); Red Blood Count 5.34 10^6/uL (4.1-5.3); Red Cell Distribution Width 15.4 % (12.1-15.1); White Blood Count 24.8 10^3/uL (4.0-10.0)
[2021-09-19] MEDS: iohexol 300 mg/mL 100 mL Btl IV (18:05)
[2021-09-19 18:24] LABS: Alanine Aminotransferase 90 U/L (0-33); Albumin Level 4.4 g/dL (3.5-5.2); Alkaline Phosphatase 89 IU/L (35-105); Anion Gap 18.7 (5-19); Aspartate Amino Transferase 102 U/L (0-32); Blood Urea Nitrogen 10 mg/dL (6-20); Calcium 10.1 mg/dL (8.5-10.5); Carbon Dioxide 21 mmol/L (22-29); Chloride 102 mmol/L (98-107); Globulin 3.6 g/dL (1.3-4.6); Glomerular Filtration Rate 123.9 mL/min (90-130); Glucose 69 mg/dL (65-115); Lipase 26 U/L (13-60); Osmolality Calculated 283 mOsm/kg (285-295); Potassium 3.7 mmol/L (3.5-5.1); Sodium 138 mmol/L (136-145); Total Bilirubin 0.2 mg/dL (0.15-1.2)
[2021-09-19 18:43] VITALS: BP 136/73; PULSE 76; RESP 18; O2SAT 96
== END 2021-09-19 19:56 ==
PROVIDERS: Emergency Provider Emergency Medicine; PCP Nurse Practitioner Family
DX: S71.111A Laceration without foreign body, right thigh, initial encounter (principal); S06.6X9A Traumatic subarachnoid hemorrhage with loss of consciousness of unspecified duration, initial encounter; V89.2XXA Person injured in unspecified motor-vehicle accident, traffic, initial encounter; F17.210 Nicotine dependence, cigarettes, uncomplicated; Z23 Encounter for immunization
CPT/HCPCS: 70450; 71260; 72125; 73552; 73590; 74177; 80053; 83690; 85025; 90471; 90715; 96374; 96375; 99284; 99291; 99292; J2270; J2405; Q9967

== ENCOUNTER 2021-11-06 18:02 | Emergency (ER) | payer MEDICAID, SELFPAY ==
[2021-11-06 18:07] VITALS: BP 141/80; PULSE 82; RESP 16; TEMP 36.6; O2SAT 97; BMI 39.9
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
[2021-11-06 18:37] VITALS: BP 148/64; PULSE 68; RESP 20; O2SAT 100
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
[2021-11-06 19:17] VITALS: BP 119/70; PULSE 80; RESP 18; O2SAT 100
== END 2021-11-06 19:18 | disposition home or self-care (01) ==
PROVIDERS: Emergency Provider Nurse Practitioner Family; PCP Nurse Practitioner Family
DX: G44.209 Tension-type headache, unspecified, not intractable (principal); M54.2 Cervicalgia
CPT/HCPCS: 70450; 99282

== ENCOUNTER 2022-10-12 22:03 | Emergency (ER) | payer MEDICAID, SELFPAY ==
[2022-10-12 22:07] VITALS: BP 138/66; PULSE 77; RESP 18; TEMP 36.8; O2SAT 97; BMI 37.6
--- NOTE | 2022-10-13 00:38 | ED_ITS ---
HPI - General Adult General: Chief complaint: General Medical Stated complaint: Left Arm\Neck\Shoulder Pain Time Seen by Provider: 10/12/22 23:18 History of Present Illness: Patient is a 22-year-old female comes to the ED with neck pain. Symptoms started approximately 7 days ago. She states she was sitting down and suddenly started having left sided neck pain that radiates down into her shoulder. Pain has also rated up into her head and started giving her headache. She has tried taking Tylenol and ibuprofen and has not helped. Denies any injury or trauma to cause symptoms. Associated symptoms: Deny chest pain, dyspnea, headache(s), nausea, rash, palpitations or vomiting Review of Systems Const: Denies: fever(s), chills or fatigue Eyes: Denies: change in vision or eye discomfort ENMT: Denies: throat pain, odynophagia, nasal discharge or nasal congestion Card: Denies: chest pain, palpitations, edema, swelling of feet/ankles, dyspnea on exertion or orthopnea Resp: Denies: dyspnea, productive cough or non-productive cough GI: Denies: abdominal pain, nausea, vomiting, diarrhea, constipation or hematochezia : Denies: flank pain, dysuria or hematuria Musc: Reports: neck pain; Denies: back pain or extremity swelling Skin/Breast: Denies: rash or new lesions Neuro: Denies: headache(s), numbness in extremities or weakness in extremities PFS ED PFSH: Medical History (Updated 10/13/22 @ 02:33 by JOELLE Soto) Dental infection Eczema Headache History of subarachnoid hemorrhage No pertinent family history Pain, dental Social History Smoking and tobacco status: never smoked Physical Exam Const: COMMON NORMALS: no acute distress, patient oriented x3, healthy appearing and alert GENERAL APPEARANCE: cooperative and comfortable HENMT: COMMON NORMALS: normocephalic HEAD & SCALP: normocephalic MOUTH: Normal oral and palatal mucosa present THROAT: posterior oropharynx normal and uvula midline Neck/C-Spine: COMMON NORMALS: supple GENERAL: Yes normal visual inspection CERVICAL SPINE: Yes pain with cervical ROM with rotation to the left, No Cervical spine tenderness, Yes Paracervical muscle tenderness left and Yes Trapezius muscle tenderness left Resp: COMMON NORMALS: normal respiratory effort, No retractions, No use of acc essory muscles and clear to auscultation bilaterally AUSCULTATION: clear to auscultation bilaterally Cardio: COMMON NORMALS: regular rate, regular rhythm, S1 normal heart sound present, S2 normal heart sound present, No gallops present (Cardio), No clicks present (Cardio), No murmurs present (Cardio) and Peripheral pulses 2+ throughout RATE: regular rate RHYTHM: regular rhythm HEART SOUNDS: S1 normal heart sound present and S2 normal heart sound present PERIPHERAL PULSES: Peripheral pulses 2+ throughout GI: COMMON NORMALS: Normal to inspection, nondistended, normoactive bowel sounds present, Soft to palpation, non-tender and no masses PALPATION: Yes Soft to palpation : COMMON NORMALS: Yes no CVA tenderness BLADDER/KIDNEY EXAM: Yes no CVA tenderness Back/Pelvis: COMMON NORMALS: no CVA tenderness Extremity: COMMON NORMALS: normal to inspection Neuro: COMMON NORMALS: patient oriented x3 SENSORIUM/ORIENTATION: Yes alert GAIT: Yes Normal gait present Skin: GENERAL SKIN EXAM: dry skin Course Vital Signs: Vital signs: Vital Signs Temperature 98.2 F 10/12/22 22:07 Pulse Rate 80 10/13/22 01:13 Respiratory Rate 16 10/13/22 01:13 Blood Pressure 138/66 10/12/22 22:07 Pulse Oximetry 97 10/13/22 01:13 Oxygen Delivery Me thod 10/13/22 01:04 [facility] - General Adult Medical Decision Making Patient is a 22-year-old female comes to the ED with neck pain. Symptoms started approximately 7 days ago. She states she was sitting down and suddenly started having left sided neck pain that radiates down into her shoulder. Pain has also rated up into her head and started giving her headache. She has tried taking Tylenol and ibuprofen and has not helped. Denies any injury or trauma to cause symptoms. Vitals are stable. Patient has some left paracervical muscle tenderness and left trapezius muscle tenderness. Rest of exam is benign. Patient was diagnosed with a neck muscle strain and was given a dose of Toradol and Norflex here in the ED. She was discharged home with a prescription for methocarbamol and she was told to continue taking ibuprofen or Tylenol for pain. Return to ED precautions given. Follow-up with PCP in the next week for reevaluation. Patient understood and agreed with plan. Discharge Plan Discharge Patient Disposition: Home Clinical Impression: Neck muscle strain Qualifiers: Encounter type: initial encounter Qualified Code(s): S16.1XXA - Strain of muscle, fascia and tendon at neck level, initial encounter Condition: Stable Prescriptions: New methocarbamol 750 mg tablet 750 mg PO Q8H PRN (Reason: Neck muscle spasms and pain) Qty: 20 0RF No Action escitalopram oxalate 10 mg tablet 10 mg PO DAILY Qty: 30 2RF Discharge Orders: Discharge ED (Routine); Ordered 10/13/22 Ordered By: Karthikeyan Parekh Discharge Diet: Regular Discharge Activity: Increase activity as tolerated Patient Instructions: Cervical Strain (ED), Neck Pain (ED) Activity Restrictions/Additional Instructions: Follow-up with medical provider as directed in the next 5 to 7 days for reevaluation. Apply cold pack or heat on neck to help with symptoms. Stretch neck muscles daily. Take medications as prescribed. Return to the ER or your medical provider if condition worsens. Please read and understand discharge instructions. Thank you for choosing [facility] for your healthcare needs today. Please realize this is an emergency room and that we are providing you with a medical screening exam and this may not be complete and all inclusive of all the testing and or work up that you may need to determine your ailment or severity of your illness. It is very important that you follow up as instructed or that you return to the Emergency Department should you have concerns or if your condition changes or worsens in any way. Stand Alone Forms: Work/School Release Coding Level of Care Code ED Classified Ad Taker for Alan Mcwilliams
[2022-10-13] MEDS: orphenadrine 30 mg/mL Inj 2 mL 60 MG IM (00:51)
[2022-10-13] MEDS: ketorolac 60 mg/2 mL INJ IM (00:53)
[2022-10-13 01:04] VITALS: PULSE 80; RESP 16; O2SAT 97
[2022-10-13 01:13] VITALS: PULSE 80; RESP 16; O2SAT 97
--- NOTE | 2022-10-19 17:29 | DCPLANNER ---
10.18.22 - patient called due to no primary care physician - voicemail left for patient to return phone call 10.18.22 - patient called due to no primary care physician - voicemail left for patient to return phone call
== END 2022-10-13 01:09 | disposition home or self-care (01) ==
PROVIDERS: Emergency Provider Physician Assistant
DX: S16.1XXA Strain of muscle, fascia and tendon at neck level, initial encounter (principal); X58.XXXA Exposure to other specified factors, initial encounter
CPT/HCPCS: 96372; 99284; J1885; J2360

== ENCOUNTER → 2023-02-02 15:20 | Outpatient (BNVA) | payer MEDICAID, SELFPAY | PROVIDERS: PCP Nurse Practitioner; Visit Provider Nurse Practitioner | DX: R05.9 Cough, unspecified (principal) | CPT/HCPCS: 71046; 85025 ==

== ENCOUNTER → 2023-03-20 13:48 | Outpatient (BNVA) | payer SELFPAY | PROVIDERS: PCP Nurse Practitioner; Visit Provider Emergency Medicine | DX: J06.9 Acute upper respiratory infection, unspecified (principal); U07.1 COVID-19 | CPT/HCPCS: 87426 ==

== ENCOUNTER 2023-06-13 16:45 | Emergency (ER) | payer SELFPAY ==
[2023-06-13 16:51] VITALS: BP 121/80; PULSE 91; RESP 15; TEMP 36.9; O2SAT 98; BMI 40.8
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
--- NOTE | 2023-06-13 18:23 | W.ED.EXTPRO ---
HPI - Extremity Problem General: Chief complaint: Extremity Injury, Lower Stated complaint: fell hurt left right ankle Time Seen by Provider: 06/13/23 16:55 History of Present Illness: Patient presents to the ER with complaints of right ankle pain. Patient hurt her right ankle after she stepped off a porch and missed a step. She states she twisted her right ankle and rolled inward. The pain is primarily on the lateral side of the ankle as well as the swelling. Patient is able to bear weight with pain. Review of Systems General: Reports: 10 or more systems reviewed and unremarkable except in HPI and below PFSH ED PFSH: Medical History Dental infection Eczema Headache History of subarachnoid hemorrhage No pertinent family history Pain, dental Social History Smoking and tobacco/nicotine status: never used tobacco/nicotine Physical Exam Const: COMMON NORMALS: no acute distress, average body habitus, patient oriented x3, no limitations, healthy appearing, alert and well nourished HENMT: COMMON NORMALS: normocephalic, atraumatic, hearing grossly normal bilaterally, external ears normal, Normal external nose present, moist oral mucous membranes and oropharynx normal HEAD & SCALP: normocephalic and atraumatic NOSE: Normal external nose present EXTERNAL EAR: Yes external ears normal Neck/C-Spine: COMMON NORMALS: no JVD Chest: COMMONS NORMALS: normal inspection of the chest and normal palpation of entire chest wall Resp: COMMON NORMALS: normal respiratory effort, No retractions, No use of accessory muscles and clear to auscultation bilaterally AUSCULTATION: clear to auscultation bilaterally Cardio: COMMON NORMALS: no JVD, regular rate, regular rhythm, S1 normal heart sound present, S2 normal heart sound present, No gallops present (Cardio), No clicks present (Cardio), No murmurs present (Cardio) and No rub (Cardio) RATE: regular rate RHYTHM: regular rhythm HEART SOUNDS: S1 normal heart sound present and S2 normal heart sound present GI: COMMON NORMALS: Normal to inspection, nondistended, normoactive bowel sounds present, Soft to palpation, non-tender, No hepatosplenomegaly present and no masses PALPATION: Yes Soft to palpation and Yes No hepatosplenomegaly present Extremity: NARRATIVE EXTREMITY EXAM: Tenderness and swelling over right lateral malleoli region. Neuro: COMMON NORMALS: patient oriented x3 SENSORIUM/ORIENTATION: Yes alert Course Vital Signs: Vital signs: Vital Signs Temperature 98.5 F 06/13/23 16:51 Pulse Rate 91 06/13/23 16:51 Respiratory Rate 15 06/13/23 16:51 Blood Pressure 121/80 06/13/23 16:51 Pulse Oximetry 98 06/13/23 16:51 Oxygen Delivery Me thod Room Air 06/13/23 16:51 MDM - Extremity (Nontraumatic) Medical Decision Making Patient presented to the ER with right lateral ankle sprain symptoms. Ankle was x-rayed which showed no acute findings. Ankle be Emmanuel wrapped patient be discharged home to follow-up with her PCP. Differential Diagnosis Unlikely herpes zoster, gout, cellulitis, superficial thrombophlebitis, deep venous thrombosis of upper extremity, lower extremity edema or deep vein thrombosis of lower extremity Medical Records I reviewed the patient's medical records. Lab Data I reviewed the patient's lab results. Radiology Impressions Ankle X-Ray 06/13/23 17:01 IMPRESSION: No acute findings. All radiology interpretation(s) finalized by discharge Discharge Plan Discharge Patient Disposition: Home Clinical Impression: Ankle sprain and strain Condition: Stable Prescriptions: No Action fluticasone propionate [Flonase Allergy Relief] 50 mcg/actuation spray,suspension 2 spray intranasal DAILY Qty: 16 0RF Rx Instructions: administer into each nostril cetirizine [Zyrtec] 10 mg tablet 10 mg PO DAILY Qty: 30 0RF Discharge Orders: Discharge ED (Routine); Ordered 06/13/23 Ordered By: Ruben Su Referrals: Stacie Weinberg FNP [Primary Care Provider] - 7-10 days Patient Instructions: Ankle Sprain (DC) Activity Restrictions/Additional Instructions: Please take [id number] Tylenol and/or ibuprofen as needed for pain relief. Please follow-up with your family practice physician in approximately 7-10 days as needed for further evaluation and treatment. Coding Level of Care Code ED Wood Chopper for Alan Mcwilliams
== END 2023-06-13 18:49 | disposition home or self-care (01) ==
PROVIDERS: Emergency Provider Emergency Medicine; PCP Nurse Practitioner
DX: S93.401A Sprain of unspecified ligament of right ankle, initial encounter (principal); S96.911A Strain of unspecified muscle and tendon at ankle and foot level, right foot, initial encounter; X50.1XXA Overexertion from prolonged static or awkward postures, initial encounter
CPT/HCPCS: 73610; 99283

== ENCOUNTER → 2023-09-01 16:12 | Outpatient (BNVA) | payer SELFPAY | PROVIDERS: PCP Nurse Practitioner; Visit Provider Registered Nurse Neonatal Intensive Care | DX: J02.9 Acute pharyngitis, unspecified (principal) | CPT/HCPCS: 87880 ==

== ENCOUNTER 2023-11-21 11:37 | Emergency (ER) | payer BC, MEDICAID, SELFPAY ==
[2023-11-21] VITALS (16 sets, daily range): BP systolic 108–141; BP diastolic 64–93; PULSE 51–95; RESP 16; TEMP 36.8; O2SAT 95–100; BMI 39.7
[2023-11-21 14:21] LABS: Basophils % 0.4 %; Eosinophils # 0.3 10^3/uL (0.0-0.8); Eosinophils % 4.1 %; Hematocrit 41.9 % (36-47); Lymphocytes # 1.7 10^3/uL (0.8-4.8); Mean Corpuscular HGB Conc 33.7 g/dL (30-55); Mean Corpuscular Volume 89.1 fl (85-98); Mean Platelet Volume 11.3 fL (7.4-10.4); Monocytes % 13.7 %; Neutrophils # 4.04 10^3/uL (1.8-7.7); Neutrophils % 57.7 %; Nucleated Red Blood Cells % 0 %; Platelet Count 287 10^3/cmm (157-399); Red Cell Distribution Width 13.2 % (12.1-15.1); White Blood Count 7.01 10^3/uL (3.29-11.43)
[2023-11-21 14:42] LABS: HCG, Serum Qual Negative (Negative)
[2023-11-21 14:48] LABS: Alanine Aminotransferase 24 U/L (0-33); Albumin Level 4.2 g/dL (3.5-5.2); Alkaline Phosphatase 76 U/L (35-105); Anion Gap 15.8 (5-19); Aspartate Amino Transferase 21 U/L (0-32); Blood Urea Nitrogen 11 mg/dL (6-20); Calcium 9.3 mg/dL (8.5-10.5); Carbon Dioxide 18 mmol/L (22-29); Chloride 109 mmol/L (98-107); Creatinine Clr Calc Pharmacy 187.9081; Globulin 3.5 g/dL (1.3-4.6); Glomerular Filtration Rate 121.8 mL/min (90-130); Glucose 79 mg/dL (65-115); Lipase 14 U/L (13-60); Osmolality Calculated 286 mOsm/kg (285-295); Potassium 3.8 mmol/L (3.5-5.1); Sodium 139 mmol/L (136-145); Total Bilirubin 0.4 mg/dL (0.15-1.2); Total Protein 7.7 g/dL (6.6-8.7)
--- NOTE | 2023-11-21 14:48 | USR_ITS ---
PROCEDURE INFORMATION: Exam: US Abdomen, Limited; Right Upper Quadrant Exam date and time: 11/21/2023 3:20 PM Age: 23 years old Clinical indication: Abdominal pain; Acute; Prior surgery; Surgery date: 6+ months; Surgery type: Appendectomy; Additional info: Right upper quadrant pain, concern for cholecystitis TECHNIQUE: Imaging protocol: Real time ultrasound of the abdomen with image documentation. Limited exam focused on the right upper quadrant. COMPARISON: US gall bladder [id number] 09/29/2019 9:59 PM FINDINGS: Liver: Mildly enlarged. Gallbladder: No gallstones. No gallbladder wall thickening or pericholecystic fluid. Negative sonographic Arthur's sign, as per the performing excelsior machine tender. Biliary ducts: Normal. No stones. No dilation. Pancreas: Unremarkable as visualized. Right kidney: No mass. No definite stones. No hydronephrosis. US/US gall bladder [id number] IMPRESSION: Mild hepatomegaly.
--- NOTE | 2023-11-21 14:49 | ED_ITS ---
HPI - Abdominal Pain 2 General: Chief Complaint: Abdominal Pain Stated Complaint: n/v, abd pains Time Seen by Provider: 11/21/23 13:07 History of Present Illness: 23-year-old female who presents the [facility] room with nausea vomiting and diarrhea. She is having some right upper quadrant and right flank pain as well. This been going on for about 4 days. She says she has not been to keep much down. No known fevers. No dysuria. No altered mental status. No chest pain. No cough. Review of Systems 2 Narrative: Constitutional symptoms: Negative except as documented in HPI. Skin symptoms: Negative except as documented in HPI. Eye symptoms: Negative except as documented in HPI. ENMT symptoms: Negative except as documented in HPI. Respiratory symptoms: Negative except as documented in HPI. Cardiovascular symptoms: Negative except as documented in HPI. Gastrointestinal symptoms: Negative except as documented in HPI. Genitourinary symptoms: Negative except as documented in HPI. Musculoskeletal symptoms: Negative except as documented in HPI. Neurologic symptoms: Negative except as documented in HPI. Psychiatric symptoms: Negative except as documented in HPI. Endocrine symptoms: Negative except as documented in HPI. PFSH ED 2 PFS: Medical History (Updated 11/21/23 @ 17:48 by Davina Beltran MD) Cellulitis of foot Accidental wasp sting No pertinent family history History of subarachnoid hemorrhage Eczema Social History Smoking and tobacco/nicotine status: never used tobacco/nicotine Physical Exam 2 Narrative: EXAM NARRATIVE: General: Alert, no acute distress. Skin: Warm, dry. Head: Normocephalic, atraumatic. Neck: Supple, trachea midline. Eye: Extraocular movements are intact. Ears, nose, mouth and throat: Dry oral mucosa Cardiovascular: Regular, Normal peripheral perfusion. Respiratory: Lungs are clear to auscultation, respirations are non-labored, breath sounds are equal, Symmetrical chest wall expansion. Gastrointestinal: Soft, some mild right upper quadrant tenderness to palpation, Non distended, Normal bowel sounds. Musculoskeletal: Normal ROM, no deformity. Neurological: Alert and oriented, No focal neurological deficit observed. Psychiatric: Cooperative, appropriate mood & affect. Course 2 Vital Signs: Vital signs: Vital Signs Temperature 98.2 F 11/21/23 11:40 Pulse Rate 65 11/21/23 16:59 Respiratory Rate 16 11/21/23 15:42 Blood Pressure 122/64 11/21/23 18:15 Pulse Oximetry 100 11/21/23 18:15 Oxygen Delivery Me thod Room Air 11/21/23 16:45 MDM - Abdominal Pain Medical Decision Making Differential diagnosis for patient presenting with right upper quadrant abdominal pain including but not limited to and based on the above HPI, review of systems and physical exam: Cholelithiasis or cholecystitis. Hepatitis. Diverticulitis. Constipation. Ureterolithiasis. Urinary tract infection. Appendicitis. colitis. small bowel obstruction. crohn's flare. pancreatitis. gastritis. peptic ulcer. Aortic disection. Workup including imaging and lab work replaced based on the above differential, history and exam to evaluate differential diagnosis Lab Review: Laboratory results were reviewed and interpreted by myself the emergency room physician. No leukocytosis. White count is 7. Hemoglobin is 14. No renal failure BUN and creatinine are 11 and 0.6. Patient does have a mild metabolic acidosis with bicarb of 18. Glucose is 79. Ultrasound gallbladder: Patient has a fatty liver but no evidence of cholecystitis or cholelithiasis. CT of the abdomen and pelvis: No acute process was seen. Most importantly there was no kidney stones. This was reviewed and interpreted by myself the emergency room physician. Also reviewed the radiologist report I reviewed the patient's medical record. Reexamination: Patient says she is feeling much better. Nausea is improved. Tolerating p.o. No increased work of breathing. No altered mental status. Lab Data 11/21/23 14:09 11/21/23 14:09 Labs/Radiology: Radiology Impressions Gallbladder Ultrasound 11/21/23 14:48 IMPRESSION: Mild hepatomegaly. Abdomen/Pelvis CT 11/21/23 17:16 IMPRESSION: 1. Limited noncontrast examination without CT evidence of acute intra-abdominal or pelvic pathology. 2. Additional findings, as above. Laboratory Results WBC 7.01 10^3/uL (3.29-11.43) 11/21/23 14:09 RBC 4.70 10^6/uL (3.85-5.65) 11/21/23 14:09 Hgb 14.10 g/dL (11.27-16.99) 11/21/23 14:09 Hct 41.9 % (36-47) 11/21/23 14:09 MCV 89.1 fl (85-98) 11/21/23 14:09 MCH 30.0 pg (27-33) 11/21/23 14:09 MCHC 33.7 g/dL (30-55) 11/21/23 14:09 RDW 13.2 % (12.1-15.1) 11/21/23 14:09 Plt Count 287 10^3/cmm (157-399) 11/21/23 14:09 MPV 11.3 fL (7.4-10.4) H 11/21/23 14:09 Neut % (Auto) 57.7 % 11/21/23 14:09 Lymph % (Auto) 24.0 % 11/21/23 14:09 [place] % (Auto) 13.7 % 11/21/23 14:09 Eos % (Auto) 4.1 % 11/21/23 14:09 Baso % (Auto) 0.4 % 11/21/23 14:09 Neut # (Auto) 4.04 10^3/uL (1.8-7.7) 11/21/23 14:09 Lymph # (Auto) 1.7 10^3/uL (0.8-4.8) 11/21/23 14:09 [place] # (Auto) 1.0 10^3/uL (0.2-0.9) H 11/21/23 14:09 Eos # (Auto) 0.3 10^3/uL (0.0-0.8) 11/21/23 14:09 Baso # (Auto) 0.0 10^3/uL (0.0-0.1) 11/21/23 14:09 Nucleated RBC % (auto) 0 % 11/21/23 14:09 Nucleated RBCs # 0.0 /100WBC 11/21/23 14:09 Sodium 139 mmol/L (136-145) 11/21/23 14:09 Potassium 3.8 mmol/L (3.5-5.1) 11/21/23 14:09 Chloride 109 mmol/L (98-107) H 11/21/23 14:09 Carbon Dioxide 18 mmol/L (22-29) L 11/21/23 14:09 Anion Gap 15.8 (5-19) 11/21/23 14:09 BUN 11 mg/dL (6-20) 11/21/23 14:09 Creatinine 0.6 mg/dL (0.5-0.9) 11/21/23 14:09 GFR Calculation 121.8 mL/min (90-130) 11/21/23 14:09 Glucose 79 mg/dL (65-115) 11/21/23 14:09 POC Glucose 81 mg/dL (70-110) 11/21/23 18:15 Calculated Osmolality 286 mOsm/kg (285-295) 11/21/23 14:09 Calcium 9.3 mg/dL (8.5-10.5) 11/21/23 14:09 Total Bilirubin 0.4 mg/dL (0.15-1.2) 11/21/23 14:09 AST 21 U/L (0-32) 11/21/23 14:09 ALT 24 U/L (0-33) 11/21/23 14:09 Alkaline Phosphatase 76 U/L (35-105) 11/21/23 14:09 Total Protein 7.7 g/dL (6.6-8.7) 11/21/23 14:09 Albumin 4.2 g/dL (3.5-5.2) 11/21/23 14:09 Globulin 3.5 g/dL (1.3-4.6) 11/21/23 14:09 Lipase 14 U/L (13-60) 11/21/23 14:09 HCG, Qual Negative (Negative) 11/21/23 14:09 Urine Color Dark yellow (Yellow) 11/21/23 15:48 Urine Appearance Clear (CLEAR) 11/21/23 15:48 Urine pH 5 (5-7) 11/21/23 15:48 Ur Specific [place] 1.020 (1.005-1.030) 11/21/23 15:48 Urine Protein Neg (Negative) 11/21/23 15:48 Urine Glucose (UA) Norm (Normal) 11/21/23 15:48 Urine Ketones 1+ (Negative) H 11/21/23 15:48 Urine Blood 2+ (Negative) H 11/21/23 15:48 Urine Nitrate Negative (Negative) 11/21/23 15:48 Urine Bilirubin 1+ (Negative) H 11/21/23 15:48 Urine Urobilinogen Norm mg/dL (Negative) 11/21/23 15:48 Ur Leukocyte Esterase 2+ (Negative) H 11/21/23 15:48 Urine RBC 5-10 /hpf (0-2) H 11/21/23 15:48 Urine WBC 15-25 /hpf (0-5) H 11/21/23 15:48 Ur Squamous Epith Cells 5-10 /hpf (0-5) H 11/21/23 15:48 Amorphous Sediment Not Reportable 11/21/23 15:48 Urine Bacteria 2+ /hpf (NONE) H 11/21/23 15:48 Urine Mucus 1+ /hpf 11/21/23 15:48 All radiology interpretation(s) finalized by discharge Other Data Assessment and plan: -Patient much improved with fluids and Zofran. - Discharged home - Discussed findings and plan with patient. Answered any questions. - All laboratory values were reviewed and interpreted personally by myself, the ER physician - All imaging was reviewed and interpreted personally by myself, the ER physician. - Evaluation and treatment of this problem were appropriate in the emergency setting Discharge Plan Discharge Patient Disposition: Home Clinical Impression: Gastroenteritis, Dehydration Condition: Stable Prescriptions: New diclofenac sodium 50 mg tablet,delayed release (DR/EC) 50 mg PO Q12H Qty: 20 0RF ondansetron 8 mg tablet,disintegrating 8 mg PO .q6 PRN (Reason: nausea and vomiting) Qty: 14 0RF cefdinir 300 mg capsule 300 mg PO BID 5 Days Qty: 10 0RF No Action Tylenol Ex Str Rapid Release 500 mg Tablet 1,000 mg PO Q6H PRN (Reason: Pain) Discharge Orders: Discharge ED (Routine); Ordered 11/21/23 Ordered By: Davina Beltran Referrals: Stacie Weinberg FNP [Primary Care Provider] - (You have been screened and evaluated and felt safe for discharge. Health conditions do change or evolve sometimes and as such it is important that you follow up with your Primary Doctor to be re checked, 3-5 days is a general good time frame for follow up. You are always welcome to return to the ED for re assessment if your symptoms are worsening or you have new concerns) Discharge Diet: Advance as tolerated and Full LIquid Discharge Activity: Increase activity as tolerated Patient Instructions: Gastroenteritis (ED), Acute Nausea and Vomiting (ED) Coding Level of Care Code ED Architectural Design Professor for Alan Mcwilliams
[2023-11-21] MEDS: sodium chloride 0.9% 1,000 ML 999 ML IV ×2 (15:54→18:19)
[2023-11-21] MEDS: ondansetron 2 mg/ML SDV 2 mL 4 MG IVP (15:56)
[2023-11-21] MEDS: ketorolac 30 mg/mL INJ IVP (15:56)
[2023-11-21 16:58] LABS: Add Urine Culture? Yes; Add Urine Microscopic? YES; Bacteria Urine 2+ /hpf; Bilirubin Urine 1+ (Negative); Blood Urine 2+ (Negative); Glucose Urine UA Norm (Normal); Ketones Urine 1+ (Negative); Leukocyte Esterase Urine 2+ (Negative); Mucus Urine 1+ /hpf; Nitrate Urine Negative (Negative); Protein Urine Neg (Negative); Urine Appearance Clear (CLEAR); Urine Color Dark Yellow (Yellow); Urobilinogen Urine Norm (Negative); WBC Urine 15-25 /hpf (0-5); pH Urine 5 (5-7)
--- NOTE | 2023-11-21 17:16 | CTR_ITS ---
PROCEDURE INFORMATION: Exam: CT Abdomen And Pelvis Without Contrast Exam date and time: 11/21/2023 5:28 PM Age: 23 years old Clinical indication: Other: Hematuria; Abdominal pain; Flank; Right; Prior surgery; Surgery date: 6+ months; Surgery type: Appy; Additional info: Right flank pain, hematuria. TECHNIQUE: Imaging protocol: Computed tomography of the abdomen and pelvis without contrast. Axial, coronal and sagittal reformatted images were created and reviewed. Radiation optimization: All CT scans at this facility use at least one of these dose optimization techniques: automated exposure control; mA and/or kV adjustment per patient size (includes targeted exams where dose is matched to clinical indication); or iterative reconstruction. COMPARISON: CT chest abdpel w/*[id number] 09/19/2021 6:06 PM RADIATION DOSE METRICS: Total DLP (mGy-cm): 1046.63 FINDINGS: Liver: Mild hepatomegaly. Gallbladder and bile ducts: No radiodense gallstones. No biliary ductal dilatation. Pancreas: Unremarkable. Spleen: Unremarkable. Adrenal glands: Normal. No mass. Kidneys and ureters: No mass. No radiodense calculi. No hydronephrosis. Stomach and bowel: No bowel wall thickening. No obstruction. No pneumatosis. Appendix: Status post appendectomy by history. Intraperitoneal space: Small nonspecific free pelvic fluid, likely physiologic. No organized fluid collection. No free air. Vasculature: Unremarkable. No aneurysm. Lymph nodes: Small mesenteric lymph nodes, nonspecific in appearance. No pathologically enlarged lymph nodes. Urinary bladder: Unremarkable as visualized. Reproductive: Intrauterine device in place. Bones/joints: No acute osseous abnormality. Soft tissues: Unremarkable. CT/CT abdomen pelvis con [id number] IMPRESSION: 1. Limited noncontrast examination without CT evidence of acute intra-abdominal or pelvic pathology. 2. Additional findings, as above.
[2023-11-21] MEDS: cefTRIAXone 1,000 MG in sodium chloride 0.9% (plus) 50 ML 100 MG IV (17:24)
[2023-11-21 18:20] LABS: Glucose Point of Care 81 mg/dL (70-110)
== END 2023-11-21 18:31 | disposition home or self-care (01) ==
PROVIDERS: Nurse Practitioner Family; Emergency Provider Emergency Medicine; PCP Nurse Practitioner
DX: K52.9 Noninfective gastroenteritis and colitis, unspecified (principal); E86.0 Dehydration
CPT/HCPCS: 36415; 36416; 74176; 76705; 80053; 81001; 82962; 83690; 84703; 85025; 87086; 96365; 96375; 99285; J0696; J1885; J2405; J7030

== ENCOUNTER 2024-07-23 07:27 | Emergency (ER) | payer SELFPAY ==
[2024-07-23 07:41] VITALS: BP 133/93; PULSE 64; RESP 18; TEMP 36.6; O2SAT 100; BMI 39.9
--- NOTE | 2024-07-23 07:44 | CTR_ITS ---
PROCEDURE INFORMATION: Exam: CT Abdomen And Pelvis Without Contrast Exam date and time: 07/23/2024 8:36 AM Age: 24 years old Clinical indication: Abdominal pain; Epigastric; Prior surgery; Surgery date: 6+ months; Surgery type: Appy; Additional info: R flank pain TECHNIQUE: Imaging protocol: Computed tomography of the abdomen and pelvis without contrast. Radiation optimization: All CT scans at this facility use at least one of these dose optimization techniques: automated exposure control; mA and/or kV adjustment per patient size (includes targeted exams where dose is matched to clinical indication); or iterative reconstruction. COMPARISON: CT abdomen pelvis wo con [id number] 11/21/2023 5:28 PM RADIATION DOSE METRICS: Total DLP (mGy-cm): 1113.72 FINDINGS: Liver: There is a tiny benign calcified granuloma in the liver. No liver masses are seen. Hepatomegaly. Gallbladder and biliary ducts: Normal. No calcified stones. No ductal dilation. Pancreas: Normal. No ductal dilation. Spleen: Normal. No splenomegaly. Adrenal glands: Normal. No mass. Kidneys and ureters: Normal. No hydronephrosis. Stomach and bowel: Unremarkable. No obstruction. No mucosal thickening. Appendix: Appendectomy. Intraperitoneal space: Unremarkable. No free air. No significant fluid collection. Vasculature: Unremarkable. No abdominal aortic aneurysm. Lymph nodes: Unremarkable. No enlarged lymph nodes. Urinary bladder: Unremarkable as visualized. Reproductive: An IUD is present in the uterus. Bones/joints: Unremarkable. No acute fracture. Soft tissues: Unremarkable. CT/CT kidney stone [id number] IMPRESSION: 1. No acute abnormality. 2. Hepatomegaly.
--- NOTE | 2024-07-23 07:50 | USR_ITS ---
PROCEDURE INFORMATION: Exam: US Abdomen, Limited; Right Upper Quadrant Exam date and time: 07/23/2024 8:13 AM Age: 24 years old Clinical indication: Abdominal pain; Localized; Right upper quadrant (ruq); Additional info: Ruq pain TECHNIQUE: Imaging protocol: Real time ultrasound of the abdomen with image documentation. Limited exam focused on the right upper quadrant. COMPARISON: US gall bladder [id number] 11/21/2023 3:20 PM FINDINGS: Liver: Fatty liver. Hepatomegaly. No liver masses are seen. Gallbladder: Normal. No gallstones. There is no gallbladder wall thickening. Biliary ducts: Normal. No stones. No dilation. Pancreas: Visualized pancreas is unremarkable. Right kidney: Normal. No mass. No hydronephrosis. Aorta: Normal Inferior vena cava: Normal US/US gall bladder [id number] IMPRESSION: 1. Hepatomegaly, fatty liver. 2. Normal gallbladder and bile ducts.
--- NOTE | 2024-07-23 07:51 | ED_ITS ---
HPI - Abdominal Pain 2 General: Chief Complaint: Abdominal Pain Stated Complaint: severe pain in rt side Time Seen by Provider: 07/23/24 07:34 Source: patient Mode of arrival: ambulatory Limitations: no limitations History of Present Illness: 24-year-old female states she started zarco ving flank pain last night. States she has had some pain into her abdomen as well. She states the pain is sharp in nature rates it a 6 out of 10 she has had an appendectomy still has her gallbladder denies any vaginal discharge or bleeding. Associated Symptoms: Reports nausea; Denies chills, diarrhea, dysuria and fever(s) Related Data Date of Last Menstrual Period: 06/29/24 Home Medications Medication Instructions Recorded Confirmed acetaminophen 500 mg tablet 1,000 mg PO Q6H PRN Pain 11/21/23 12/03/23 Previous Rx's Medication Instructions Recorded diclofenac sodium 50 mg 50 mg PO Q12H #20 tabs 11/21/23 tablet,delayed release ondansetron 8 mg disintegrating 8 mg PO .q6 PRN nausea and 11/21/23 tablet vomiting #14 tabs amoxicillin 875 mg tablet 875 mg PO BID 7 days #14 tabs 12/03/23 fluconazole 150 mg tablet 150 mg PO DAILY 5 days #5 tabs 12/03/23 ketoconazole 2 % topical cream 1 applic topical DAILY #30 grams 12/03/23 ondansetron 4 mg disintegrating 4 mg PO Q6H PRN nausea and 07/23/24 tablet vomiting #14 tabs Allergies Allergy/AdvReac Type Severity Reaction Status Date / Time No Known Allergies Allergy Verified 07/23/24 07:46 Review of Systems 2 Const: Denies: fever(s), chills, body aches or change in appetite ENMT: Denies: throat pain or dental pain Card: Denies: chest pain Resp: Denies: dyspnea GI: Reports: abdominal pain and nausea; Denies: diarrhea : Reports: flank pain; Denies: dysuria Musc: Denies: neck pain or back pain Skin/Breast: Denies: rash Neuro: Denies: headache(s) PFSH ED 2 PFSH: Medical History Candidiasis of skin Tinea corporis Acute bacterial sinusitis Cellulitis of foot Accidental wasp sting No pertinent family history History of subarachnoid hemorrhage Eczema Social History Smoking and tobacco/nicotine status: never used tobacco/nicotine Female Reproductive History: Date of last menstrual period: 06/29/24 Physical Exam 2 Const: COMMON NORMALS: no acute distress, patient oriented x3 and healthy appearing HENMT: COMMON NORMALS: normocephalic and atraumatic HEAD & SCALP: n ormocephalic and atraumatic Eye: COMMON NORMALS: conjunctivae normal CONJUNCTIVA: Yes conjunctivae normal Neck/C-Spine: COMMON NORMALS: full ROM and supple Chest: COMMONS NORMALS: normal inspection of the chest Resp: COMMON NORMALS: normal respiratory effort, No retractions, No use of accessory muscles and clear to auscultation bilaterally AUSCULTATION: clear to auscultation bilaterally Cardio: COMMON NORMALS: regular rate, regular rhythm and No murmurs present (Cardio) RATE: regular rate RHYTHM: regular rhythm GI: COMMON NORMALS: Normal to inspection, nondistended, normoactive bowel sounds present, Soft to palpation and no masses PALPATION: Yes Soft to palpation and Yes Tenderness to palpation present (GI) Details: RUQ Extremity: COMMON NORMALS: normal to inspection and full ROM Neuro: COMMON NORMALS: patient oriented x3, moves all extremities and no focal motor deficits Psych: COMMON NORMALS: mental status grossly normal, Normal thought process present and cooperative THOUGHT PROCESS: Normal thought process present Skin: COMMON NORMALS: no rashes or lesions noted and no wounds GENERAL SKIN EXAM: no rashes or lesions noted Course 2 Vital Signs: Vital signs: Vital Signs Temperature 97.9 F 07/23/24 07:41 Pulse Rate 48 L 07/23/24 08:46 Respiratory Rate 20 H 07/23/24 08:01 Blood Pressure 118/69 07/23/24 08:46 Pulse Oximetry 97 07/23/24 08:46 Oxygen Delivery Me thod Room Air 07/23/24 07:41 MDM - Abdominal Pain Medical Decision Making Patient presents here with back and abdominal pain imaging blood work here is all normal could be muscular in nature her pains improved here she is stable for discharge follow-up PCP return if worsening she understands agrees to plan. Medical Records I reviewed the patient's medical records. Lab Data I reviewed the patient's lab results. 07/23/24 07:58 07/23/24 07:58 Labs/Radiology: Radiology Impressions Abdomen/Pelvis CT 07/23/24 07:44 IMPRESSION: 1. No acute abnormality. 2. Hepatomegaly. Gallbladder Ultrasound 07/23/24 07:50 IMPRESSION: 1. Hepatomegaly, fatty liver. 2. Normal gallbladder and bile ducts. Laboratory Results WBC 13.05 10^3/uL (3.29-11.43) H 07/23/24 07:58 RBC 4.37 10^6/uL (3.85-5.65) 07/23/24 07:58 Hgb 12.80 g/dL (11.27-16.99) 07/23/24 07:58 Hct 38.8 % (36-47) 07/23/24 07:58 MCV 88.8 fl (85-98) 07/23/24 07:58 MCH 29.3 pg (27-33) 07/23/24 07:58 MCHC 33.0 g/dL (30-55) 07/23/24 07:58 RDW 13.2 % (12.1-15.1) 07/23/24 07:58 Plt Count 325 10^3/cmm (157-399) 07/23/24 07:58 MPV 10.9 fL (7.4-10.4) H 07/23/24 07:58 Neut % (Auto) 67.0 % 07/23/24 07:58 Lymph % (Auto) 24.2 % 07/23/24 07:58 [place] % (Auto) 5.9 % 07/23/24 07:58 Eos % (Auto) 2.1 % 07/23/24 07:58 Baso % (Auto) 0.4 % 07/23/24 07:58 Neut # (Auto) 8.75 10^3/uL (1.8-7.7) H 07/23/24 07:58 Lymph # (Auto) 3.2 10^3/uL (0.8-4.8) 07/23/24 07:58 [place] # (Auto) 0.8 10^3/uL (0.2-0.9) 07/23/24 07:58 Eos # (Auto) 0.3 10^3/uL (0.0-0.8) 07/23/24 07:58 Baso # (Auto) 0.1 10^3/uL (0.0-0.1) 07/23/24 07:58 Nucleated RBC % (auto) 0 % 07/23/24 07:58 Nucleated RBCs # 0.0 /100WBC 07/23/24 07:58 Sodium 143 mmol/L (136-145) 07/23/24 07:58 Potassium 3.5 mmol/L (3.5-5.1) 07/23/24 07:58 Chloride 109 mmol/L (98-107) H 07/23/24 07:58 Carbon Dioxide 22 mmol/L (22-29) 07/23/24 07:58 Anion Gap 15.5 (5-19) 07/23/24 07:58 BUN 13 mg/dL (6-20) 07/23/24 07:58 Creatinine 0.7 mg/dL (0.5-0.9) 07/23/24 07:58 GFR Calculation 101.1 mL/min (90-130) 07/23/24 07:58 Glucose 117 mg/dL (65-115) H 07/23/24 07:58 Calculated Osmolality 297 mOsm/kg (285-295) H 07/23/24 07:58 Calcium 8.8 mg/dL (8.5-10.5) 07/23/24 07:58 Total Bilirubin 0.2 mg/dL (0.15-1.2) 07/23/24 07:58 AST 11 U/L (0-32) 07/23/24 07:58 ALT 11 U/L (0-33) 07/23/24 07:58 Alkaline Phosphatase 70 U/L (35-105) 07/23/24 07:58 Total Protein 6.7 g/dL (6.6-8.7) 07/23/24 07:58 Albumin 4.1 g/dL (3.5-5.2) 07/23/24 07:58 Globulin 2.6 g/dL (1.3-4.6) 07/23/24 07:58 Lipase 28 U/L (13-60) 07/23/24 07:58 HCG, Qual Negative (Negative) 07/23/24 07:58 Urine Color Yellow (Yellow) 07/23/24 07:39 Urine Appearance Clear (CLEAR) 07/23/24 07:39 Urine pH 5.5 (5-7) 07/23/24 07:39 Ur Specific [place] 1.035 (1.005-1.030) H 07/23/24 07:39 Urine Protein Negative (Negative) 07/23/24 07:39 Urine Glucose (UA) Negative (Normal) 07/23/24 07:39 Urine Ketones Negative (Negative) 07/23/24 07:39 Urine Blood Negative (Negative) 07/23/24 07:39 Urine Nitrate Negative (Negative) 07/23/24 07:39 Urine Bilirubin Negative (Negative) 07/23/24 07:39 Urine Urobilinogen 1.0 mg/dL (Negative) 07/23/24 07:39 Ur Leukocyte Esterase Negative (Negative) 07/23/24 07:39 Urine RBC 0-2 /hpf (0-2) 07/23/24 07:39 Urine WBC 6-10 /hpf (0-5) 07/23/24 07:39 Ur Squamous Epith Cells 0-5 /hpf (0-5) 07/23/24 07:39 Amorphous Sediment Not Reportable 07/23/24 07:39 Urine Bacteria None seen /hpf (NONE) 07/23/24 07:39 Hyaline Casts 0.81 /lpf 07/23/24 07:39 All radiology interpretation(s) finalized by discharge Discharge Plan Discharge Patient Disposition: Home Clinical Impression: Abdominal pain Condition: Stable Prescriptions: New ondansetron 4 mg tablet,disintegrating 4 mg PO Q6H PRN (Reason: nausea and vomiting) Qty: 14 0RF No Action amoxicillin 875 mg tablet 875 mg PO BID 7 Days Qty: 14 0RF fluconazole 150 mg tablet 150 mg PO DAILY 5 Days Qty: 5 0RF Rx Instructions: administer on day 1 of therapy ketoconazole 2 % cream 1 applic topical DAILY Qty: 30 1RF Tylenol Ex Str Rapid Release 500 mg Tablet 1,000 mg PO Q6H PRN (Reason: Pain) diclofenac sodium 50 mg tablet,delayed release (DR/EC) 50 mg PO Q12H Qty: 20 0RF ondansetron 8 mg tablet,disintegrating 8 mg PO .q6 PRN (Reason: nausea and vomiting) Qty: 14 0RF Discharge Orders: Discharge ED (Routine); Ordered 07/23/24 Ordered By: Noy Amaral Referrals: RUSLAN Jeffrey, DOUBLE END TENON OPERATOR [Primary Care Provider] - Discharge Diet: Advance as tolerated Discharge Activity: Resume usual activity Patient Instructions: Abdominal Pain (ED) Coding Level of Care Code ED Electro Mechanical Assembler for Alan Mcwilliams
[2024-07-23 07:55] LABS: Bilirubin Urine Negative (Negative); Blood Urine Negative (Negative); Glucose Urine UA Negative (Normal); Ketones Urine Negative (Negative); Leukocyte Esterase Urine Negative (Negative); Nitrate Urine Negative (Negative); Protein Urine Negative (Negative); Urine Appearance Clear (CLEAR); Urine Color Yellow (Yellow); pH Urine 5.5 (5-7)
[2024-07-23 08:01] VITALS: RESP 20; O2SAT 99
[2024-07-23 08:01] LABS: Add Urine Microscopic? YES; Bacteria Urine None Seen /hpf; Hyaline Casts Urine 0.81 /lpf; RBC Urine 0-2 /hpf (0-2); Squamous Epithelial Cell Urine 0-5 /hpf (0-5)
[2024-07-23] MEDS: morphine 4 mg/mL SDV 1 mL IVP (08:01)
[2024-07-23] MEDS: ondansetron 2 mg/ML SDV 2 mL 4 MG IVP (08:01)
[2024-07-23 08:03] LABS: Specific Gravity, Urine 1.035 (1.005-1.030)
[2024-07-23 08:03] LABS: Basophils # 0.1 10^3/uL (0.0-0.1); Basophils % 0.4 %; Eosinophils # 0.3 10^3/uL (0.0-0.8); Eosinophils % 2.1 %; Hematocrit 38.8 % (36-47); Lymphocytes # 3.2 10^3/uL (0.8-4.8); Lymphocytes % 24.2 %; Mean Corpuscular Hemoglobin 29.3 pg (27-33); Mean Corpuscular Volume 88.8 fl (85-98); Mean Platelet Volume 10.9 fL (7.4-10.4); Monocytes # 0.8 10^3/uL (0.2-0.9); Monocytes % 5.9 %; Neutrophils # 8.75 10^3/uL (1.8-7.7); Nucleated Red Blood Cells % 0 %; Platelet Count 325 10^3/cmm (157-399); Red Blood Count 4.37 10^6/uL (3.85-5.65); Red Cell Distribution Width 13.2 % (12.1-15.1); White Blood Count 13.05 10^3/uL (3.29-11.43)
[2024-07-23 08:12] LABS: HCG, Serum Qual Negative (Negative)
[2024-07-23 08:22] LABS: Alanine Aminotransferase 11 U/L (0-33); Albumin Level 4.1 g/dL (3.5-5.2); Alkaline Phosphatase 70 U/L (35-105); Anion Gap 15.5 (5-19); Aspartate Amino Transferase 11 U/L (0-32); Blood Urea Nitrogen 13 mg/dL (6-20); Calcium 8.8 mg/dL (8.5-10.5); Carbon Dioxide 22 mmol/L (22-29); Chloride 109 mmol/L (98-107); Creatinine Clr Calc Pharmacy 160.0127; Globulin 2.6 g/dL (1.3-4.6); Glomerular Filtration Rate 101.1 mL/min (90-130); Glucose 117 mg/dL (65-115); Lipase 28 U/L (13-60); Osmolality Calculated 297 mOsm/kg (285-295); Potassium 3.5 mmol/L (3.5-5.1); Sodium 143 mmol/L (136-145); Total Bilirubin 0.2 mg/dL (0.15-1.2); Total Protein 6.7 g/dL (6.6-8.7)
[2024-07-23 08:46] VITALS: BP 118/69; PULSE 48; O2SAT 97
[2024-07-23 09:41] VITALS: BP 115/70; PULSE 50; O2SAT 98
== END 2024-07-23 09:42 | disposition home or self-care (01) ==
PROVIDERS: Emergency Provider Emergency Medicine; PCP Nurse Practitioner Family
DX: R10.9 Unspecified abdominal pain (principal)
CPT/HCPCS: 36415; 74176; 76705; 80053; 81001; 83690; 84703; 85025; 96374; 96375; 99285; J2270; J2405

== ENCOUNTER 2024-12-19 16:53 | Emergency (ER) | payer SELFPAY ==
--- NOTE | 2024-12-19 16:56 | XRR_ITS ---
PROCEDURE INFORMATION: Exam: XR Right Ankle Exam date and time: 12/19/2024 5:15 PM Age: 24 years old Clinical indication: Injury or trauma; Other: Not specified; Blunt trauma; Ankle; Right TECHNIQUE: Imaging protocol: Radiologic exam of the right ankle. Views: 3 or more views. COMPARISON: CR XR ankle RT min 3V* [id number] 06/13/2023 5:54 PM FINDINGS: Bones/joints: No acute fractures. No bony destructive lesions. Soft tissues: Mild soft tissue swelling about the ankle, especially the lateral malleolus. XR/XR ankle RT min 3V* [id number] IMPRESSION: 1. No acute fractures. 2. Mild soft tissue swelling about the ankle, especially the lateral malleolus.
[2024-12-19 17:02] VITALS: BP 145/91; PULSE 70; RESP 16; TEMP 37; O2SAT 98; BMI 39.9
--- NOTE | 2024-12-19 17:16 | W.ED.LOWEXIN ---
HPI - Extremity Injury (Lower) General: Chief Complaint: Extremity Injury, Lower Stated Complaint: R foot pain Time Seen by Provider: 12/19/24 17:08 History of Present Illness: Patient is a pleasant 24-year-old female that presented to the ED after a fall last p.m., missed stepped, backwards, with inverted foot. She complains of pain with ambulation. Pain is right lateral distal aspect of malleolus. Related Data Home Medications ?Medication ?Instructions ?Recorded ?Confirmed acetaminophen 500 mg tablet 1,000 mg PO Q6H PRN Pain 11/21/23 12/03/23 Previous Rx's ?Medication ?Instructions ?Recorded diclofenac sodium 50 mg 50 mg PO Q12H #20 tabs 11/21/23 tablet,delayed release ondansetron 8 mg disintegrating 8 mg PO .q6 PRN nausea and 11/21/23 tablet vomiting #14 tabs amoxicillin 875 mg tablet 875 mg PO BID 7 days #14 tabs 12/03/23 fluconazole 150 mg tablet 150 mg PO DAILY 5 days #5 tabs 12/03/23 ketoconazole 2 % topical cream 1 applic topical DAILY #30 grams 12/03/23 ondansetron 4 mg disintegrating 4 mg PO Q6H PRN nausea and 07/23/24 tablet vomiting #14 tabs Allergies Allergy/AdvReac Type Severity Reaction Status Date / Time No Known Allergies Allergy Verified 07/23/24 07:46 Review of Systems General: Reports: 10 or more systems reviewed and unremarkable except in HPI and below Const: Denies: fever(s) or chills Card: Denies: chest pain or syncope Resp: Denies: dyspnea GI: Denies: abdominal pain, nausea or vomiting Musc: Reports: extremity pain, extremity swelling, joint pain, joint swelling, joint stiffness and limited range of motion; Denies: joint redness, joint warmth or muscle weakness PFS ED PFSH: Medical History Candidiasis of skin Tinea corporis Acute bacterial sinusitis Cellulitis of foot Accidental wasp sting No pertinent family history History of subarachnoid hemorrhage Eczema Social History Smoking and tobacco/nicotine status: never used tobacco/nicotine Physical Exam Const: COMMON NORMALS: patient oriented x3 Extremity: COMMON NORMALS: capillary refill normal; negative for full ROM (decreased due to edema and pain) NARRATIVE EXTREMITY EXAM: Ecchymosis To right distal lateral ankle RIGHT LOWER EXTREMITY: Yes foot & digits Right ankle: Yes inspection, Yes palpation, Yes ROM (decreased due to edema and pain) and Yes neurovascular exam (intact) EXTREMITY IMAGE (FRONT):  1. Ecchymosis Neuro: COMMON NORMALS: patient oriented x3, CN's II-XII intact bilaterally, moves all extremities and no sensory deficits noted Psych: COMMON NORMALS: speech normal ATTITUDE: Yes calm ACTIVITY/MOTOR BEHAVIOR: Yes appropriate eye contact SPEECH: Yes normal speech THOUGHT CONTENT: Yes Normal thought content present Course Vital Signs: Vital signs: Vital Signs Temperature 98.6 F 12/19/24 17:02 Pulse Rate 70 12/19/24 17:02 Respiratory Rate 16 12/19/24 17:02 Blood Pressure 145/91 12/19/24 17:02 Pulse Oximetry 98 12/19/24 17:02 Oxygen Delivery Me thod Room Air 12/19/24 17:02 MDM - Extremity Injury (Lower) Medical Decision Making Patient is a 24-year-old female with misstep, and inverted right ankle with associated edema. She has association of ambulatory dysfunction. No fracture on x-ray. Will brace, have patient follow-up with primary care. Differential Diagnosis Likely ankle sprain and strain and ankle fracture Lab Data Radiology Impressions Ankle X-Ray 12/19/24 16:56 IMPRESSION: 1. No acute fractures. 2. Mild soft tissue swelling about the ankle, especially the lateral malleolus. XR interpretation done by ED provider, pending radiology final review ED provider radiology interpretation(s): No fracture Discharge Plan Discharge Patient Disposition: Home Clinical Impression: Ankle sprain and strain Condition: Stable Prescriptions: No Action amoxicillin 875 mg tablet 875 mg PO BID 7 Days Qty: 14 0RF fluconazole 150 mg tablet 150 mg PO DAILY 5 Days Qty: 5 0RF Rx Instructions: administer on day 1 of therapy ketoconazole 2 % cream 1 applic topical DAILY Qty: 30 1RF Tylenol Ex Str Rapid Release 500 mg Tablet 1,000 mg PO Q6H PRN (Reason: Pain) diclofenac sodium 50 mg tablet,delayed release (DR/EC) 50 mg PO Q12H Qty: 20 0RF ondansetron 8 mg tablet,disintegrating 8 mg PO .q6 PRN (Reason: nausea and vomiting) Qty: 14 0RF ondansetron 4 mg tablet,disintegrating 4 mg PO Q6H PRN (Reason: nausea and vomiting) Qty: 14 0RF Discharge Orders: Discharge Order (Routine); Ordered 12/19/24 Ordered By: Brynn Dorado Discharge ED (Routine); Ordered 12/19/24 Ordered By: Brynn Dorado Referrals: RUSLAN Jeffrey, CHILD AND ADOLESCENT THERAPIST [Primary Care Provider, Family Practice] Discharge Diet: Usual diet Discharge Activity: Limit activity as instructed Patient Instructions: Ankle Sprain (ED), Opioid Safety, Pain Management Activity Restrictions/Additional Instructions: Wear splint. Ice, elevate, compress. As we discussed, naproxen/or ibuprofen for inflammation, and take with Tylenol for pain. Repeat x-ray in 1 week if still having issues. Print Language: Khmer Coding Level of Care Code ED Director Of Federal Sales for Alan Mcwilliams
== END 2024-12-19 19:06 | disposition home or self-care (01) ==
PROVIDERS: Emergency Provider Physician Assistant; PCP Nurse Practitioner Family
DX: S93.401A Sprain of unspecified ligament of right ankle, initial encounter (principal); W19.XXXA Unspecified fall, initial encounter
CPT/HCPCS: 73610; 99283

== ENCOUNTER → 2025-01-09 16:06 | Outpatient (BNVA) | payer BC, SELFPAY | PROVIDERS: PCP Nurse Practitioner Family; Visit Provider Nurse Practitioner Family | DX: J01.90 Acute sinusitis, unspecified (principal); R51.9 Headache, unspecified; G89.29 Other chronic pain; B96.89 Other specified bacterial agents as the cause of diseases classified elsewhere; Z86.79 Personal history of other diseases of the circulatory system; R53.82 Chronic fatigue, unspecified; D64.9 Anemia, unspecified | CPT/HCPCS: 80053; 80061; 81003; 82306; 82607; 82728; 82746; 83036; 83550; 84439; 84443; 85025; 86376; 87086 ==

== ENCOUNTER 2025-05-08 20:27 | Emergency (ER) | payer BC, SELFPAY ==
[2025-05-08 20:31] VITALS: BP 128/85; PULSE 74; RESP 18; TEMP 36.7; O2SAT 96; BMI 38.3
--- OUTSIDE RECORDS SUMMARY | 2025-05-08 20:35 | XMS_ITS | Clinical Summary ---
Author Organization [facility] Address [address] Attn: Epic Prelude ADT RACQUEL PICKENS [id number] Care Team Providers Care Sales And Marketing Intern Name Role Phone Unavailable Primary Care Provider Unavailabl e Allergies No known active allergies Medications sertraline (ZOLOFT) 100 mg tablet Take 100 mg by mouth daily. 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 Cleft lip, unspecified 03/02/2013 Hypertension 06/20/2012 Immunizations Immunization Administration Dates Next Due (M-M-R II/PRIORIX)(12 MO UP) MEASLES, MUMPS AND RUBELLA VIRUS VACCINE, 0.5 ML IM/SUBCUT 03/13/2004,12/17/1999 Dt Dtp Dtap Vaccine 03/13/2004, 0,01/21/1999,1998,1998 HIB, Unspecified Formulation 12/17/1999, 01/21/1999,1998,1998 Hepatitis B Vaccine 04/15/1999,1998,1998 IPV/OPV 03/13/2004, 0,1998,1998 Family History Medical History Relation Name Comments Healthy Brother Healthy Father Hypertension Father Healthy Maternal Grandfather Healthy Maternal Grandmother Diabetes Paternal Grandfather Hypertension Paternal Grandfather Other Paternal Grandfather Diabetes Paternal Grandmother Other Paternal Grandmother Healthy Sister Relation Name Status Comments Brother Father Alive Maternal Grandfather Alive Maternal Grandmother Alive Mother Paternal Grandfather Alive Paternal Grandmother Alive Sister Social History Tobacco Use Types Packs/Day Years Used Date Smoking Tobacco: Every Day Cigarettes Smokeless Tobacco: Never Alcohol Use Standard Drinks/Week Comments No 0 (1 standard drink = 0.6 oz pur e alcohol) Comments No Sex and Gender Information Value Date Recorded Sex Assigned at Not on file Legal Sex Female 8:35 AM [employer] Gender Identity Not on file Sexual Orientation Not on file Last Filed Vital Signs Vital Sign Reading Time Taken Comments Blood Pressure 125/86 05/05/2022 7:15 PM CDT Pulse 82 05/05/2022 7:15 PM CDT Temperature 37.1 C (98.8 F) 05/05/2022 6:14 PM CDT Respiratory Rate 18 05/05/2022 6:14 PM CDT Oxygen Saturation 98% 05/05/2022 7:15 PM CDT Inhaled Oxygen Concentration - - Weight 117.5 kg (259 lb) 05/05/2022 6:14 PM CDT Height 157.5 cm (5' 2 ) 05/05/2022 6:14 PM CDT Body Mass Index 47.37 05/05/2022 6:14 PM CDT Plan of Treatment Health Maintenance Due Date Last Done Comments DTAP/TDAP/TD VACCINES (6 - Tdap) 2009 03/13/2004, 12/17/1999, 01/21/1999, Additional history exists HPV VACCINES (1 - 3-dose series) 2013 CERVICAL CANCER SCREENING 2019 HPV/Cotest (21-29) 2019 PAP SMEAR 2019 INFLUENZA VACCINE (#1) 2025 HEPATITIS B VACCINES Completed 04/15/1999, 1998, 1998
[2025-05-08 23:06] VITALS: BP 150/97; PULSE 46; O2SAT 97
[2025-05-08] MEDS: diphenhydrAMINE 50 mg/mL SDV 1mL 25 MG IVP (23:07)
[2025-05-08 23:26] LABS: Hematocrit 36.9 % (36-47); Hemoglobin 12.50 g/dL (11.27-16.99); Mean Corpuscular HGB Conc 33.9 g/dL (30-55); Mean Corpuscular Hemoglobin 29.6 pg (27-33); Mean Corpuscular Volume 87.2 fl (85-98); Nucleated Red Blood Cells % 0 %; Platelet Count 332 10^3/cmm (157-399); Red Blood Count 4.23 10^6/uL (3.85-5.65); White Blood Count 9.82 10^3/uL (3.29-11.43)
[2025-05-08 23:37] LABS: Glucose Urine UA Negative (Normal); Nitrate Urine Negative (Negative)
[2025-05-08 23:39] LABS: HCG Qualitative Urine. Negative (Negative)
[2025-05-08 23:44] LABS: PCP Screen Urine Negative (Negative)
[2025-05-08 23:45] LABS: Alanine Aminotransferase 12 U/L (0-33); Albumin Level 3.9 g/dL (3.5-5.2); Alkaline Phosphatase 63 U/L (35-105); Anion Gap 14.7 (5-19); Aspartate Amino Transferase 12 U/L (0-32); Blood Urea Nitrogen 11 mg/dL (6-20); Calcium 8.9 mg/dL (8.5-10.5); Carbon Dioxide 23 mmol/L (22-29); Chloride 108 mmol/L (98-107); Creatinine Clr Calc Pharmacy 156.5243; Globulin 2.7 g/dL (1.3-4.6); Glucose 96 mg/dL (65-115); Lipase 18 U/L (13-60); Osmolality Calculated 293 mOsm/kg (285-295); Potassium 3.7 mmol/L (3.5-5.1); Sodium 142 mmol/L (136-145); Total Protein 6.6 g/dL (6.6-8.7)
[2025-05-09 00:04] LABS: Add Urine Microscopic? YES; Specific Gravity, Urine 1.035 (1.005-1.030)
[2025-05-09 01:00] VITALS: BP 121/82; PULSE 48; O2SAT 98
[2025-05-09 01:54] VITALS: BP 122/94; PULSE 48; O2SAT 97
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
== END 2025-05-09 01:56 | disposition home or self-care (01) ==
PROVIDERS: Emergency Provider Student in an Organized Health Care Education/Training Program; PCP Nurse Practitioner Family
DX: Z03.89 Encounter for observation for other suspected diseases and conditions ruled out (principal)
CPT/HCPCS: 80053; 80306; 81001; 81025; 83690; 85025; 96361; 96374; 96375; 99284; J0780; J1200; J7030